=== PATIENT | female | born 1985 | race Caucasian/White ===

== ENCOUNTER 2017-06-06 09:27 | Emergency (ER) | payer OTHER ==
[2017-06-06 10:05] VITALS: BP 103/71
--- NOTE | 2017-06-06 10:15 | UC ---
Ear Complaint HPI - HPI Summary HPI Summary: bilateral ear pain x 2 days + nasal congestion, no cough no fever - History of Current Complaint Chief Complaint: UCEar Stated Complaint: EARS COMPLAINT Time Seen by Provider: 06/06/17 09:47 Hx Obtained From: Patient Hx Last Menstrual Period: 06/02/17 ?: No Onset/Duration: Gradual Onset, Lasting Days - 2, Still Present Severity Initially: Moderate Severity Currently: Moderate Aggravating Factors: Cold Alleviating Factors: Nothing Associated Signs/Symptoms: Positive: Hearing Loss, URI Symptoms. Negative: Discharge, Foreign Body Sensation, Trauma to Ear, Swelling @ - Allergies/Home Medications Allergies/Adverse Reactions: Allergies Allergy/AdvReac Type Severity Reaction Status Date / Time Tramadol Allergy Intermediate NAUSEA, Verified 06/06/17 09:57 HIVES, [address] Sulfa Drugs Allergy Unknown POSSIBLE Verified 06/06/17 09:57 RASH Hydrocodone Allergy Hives Verified 06/06/17 09:57 [From Hydrocodone W/Acetaminophen] PMH/Surg Hx/FS Hx/Imm Hx Respiratory History: Asthma - Surgical History Surgical History: Yes Surgery Procedure, Year, and Place: Left Carpal Tunnel, 2014, [facility] [place]; Right Carpal Tunnel, 2012, [place]: C-Sections, 2004 2006 2008, [place] - Family History Known Family History: Positive: Unknown Negative: Diabetes - Social History Alcohol Use: None Substance Use Type: None Smoking Status (MU): Light Every Day Tobacco Smoker Type: Cigarettes Amount Used/How Often: 5 CIGS/DAY Length of Time of Smoking/Using Tobacco: 16 Years Have You Smoked in the Last Year: Yes Household Exposure Type: Cigarettes - Immunization History Most Recent Influenza Vaccination: no Review of Systems Constitutional: Negative Skin: Negative Eyes: Negative ENT: Ear Ache, Nasal Discharge Respiratory: Negative Cardiovascular: Negative Gastrointestinal: Negative Is Patient Immunocompromised?: No All Other Systems Reviewed And Are Negative: Yes Physical Exam Triage Information Reviewed: Yes Appearance: Well-Appearing, No Pain Distress, Well-Nourished Vital Signs: Initial Vital Signs Temp 97.5 F 06/06/17 09:57 Pulse 72 06/06/17 09:57 Resp 16 06/06/17 09:57 BP 103/71 06/06/17 09:57 Pulse Ox 100 06/06/17 09:57 Vital Signs Reviewed: Yes Eyes: Positive: Conjunctiva Clear ENT: Positive: Normal ENT inspection, Hearing grossly normal, Pharynx normal, Nasal drainage, TM bulging - bilateral, TM dull - bilateral ears, TM red - bilateral ears. Negative: TMs normal Neck exam: Normal Neck: Positive: Supple, Nontender, No Lymphadenopathy Respiratory: Positive: Chest non-tender, Lungs clear, Normal breath sounds Cardiovascular: Positive: RRR, No Murmur, Pulses Normal Skin Exam: Normal Ear Complaint Course/Dx - Differential Dx/Diagnosis Provider Diagnoses: otitis media bilateral Discharge - Discharge Plan Condition: Stable Disposition: HOME Prescriptions: Amoxicillin PO (*) [Amoxicillin 875 MG (*)] 875 mg PO BID #20 tab Patient Education Materials: Otitis Media (ED) Referrals: Louisa Levin MD [Primary Care Provider] - 5 Days
== END 2017-06-06 10:25 | disposition home or self-care (01) ==
LOC: UCCORT 09:27
DX: H66.93 Otitis media, unspecified, bilateral (principal); F17.210 Nicotine dependence, cigarettes, uncomplicated
CPT/HCPCS: 99212; G0463

== ENCOUNTER 2018-01-12 11:31 | Emergency (ER) | payer OTHER ==
[2018-01-12 11:48] VITALS: BP 106/63
[2018-01-12] MEDS ORDERED: methylPREDNISolone 125 MG* 2 ML VIAL IM ONE (12:15)
--- NOTE | 2018-01-12 12:27 | ED ---
Skin Complaint - HPI Summary HPI Summary: 32-year-old female presents to the area for the past 3 days. She has a history of this. She has not had an issue in a year. She states that he cannot figure out why she gets the urticaria. She states that she was on about 8 antihistamines and that seemed to control her symptoms she took herself off as she had not had a rash while. She denies any new triggers. No new foods soaps or products. States the rash is itchy. She states that the rash has been spreading. She is taking Benadryl with minimal relief. States steroids normally help with the rash. She's last time she was on prednisone for a year as it was the only thing that could control the symptoms. She denies any chest or shortness breath. No sore throat. No abdominal pain. No nausea no vomiting. She denies any tongue swelling. - History of Current Complaint Chief Complaint: UCSkin Time Seen by Provider: 01/12/18 12:07 Stated Complaint: EAR COMPLAINT Hx Last Menstrual Period: December 18, 2017 Pain Intensity: 5 - Allergy/Home Medications Allergies/Adverse Reactions: Allergies Allergy/AdvReac Type Severity Reaction Status Date / Time hydrocodone Allergy Hives Verified 01/12/18 11:41 Sulfa (Sulfonamide Allergy Rash Verified 01/12/18 11:41 Antibiotics) tramadol Allergy Airway Verified 01/12/18 11:41 Obstruction Home Medications: Home Medications diphenhydrAMINE HCl [Benadryl Allergy] 25 mg PO Q6HR 01/12/18 [History Confirmed 01/12/18] PMH/Surg Hx/FS Hx/Imm Hx Endocrine/Hematology History: Denies: Hx Diabetes, Hx Thyroid Disease Cardiovascular History: Denies: Hx Hypertension Respiratory History: Reports: Hx Asthma - EXERCISE INDUCED- ALSO IS A SMOKER Denies: Hx Chronic Obstructive Pulmonary Disease (COPD) GI History: Denies: Hx Ulcer Sensory History: Reports: Hx Contacts or Glasses - READING GLASSES Denies: Hx Hearing Aid Opthamlomology History: Reports: Hx Contacts or Glasses - READING GLASSES Neurological History: Reports: Hx Migraine - HX OF - NONE RECENTLY Psychiatric History: Reports: Hx Anxiety - HX OF - NO MEDICATION FOR- STATES UNDER CONTROL, Hx Depression - HX OF- NO MEDICATION FOR- STATES UNDER CONTROL - Surgical History Surgery Procedure, Year, and Place: Left Carpal Tunnel, 2015, [facility] [place]; Right Carpal Tunnel, 2013, [place]: C-Sections, 2004 2006 2009, [place] Hx Anesthesia Reactions: No Infectious Disease History: No Infectious Disease History: Denies: Hx Clostridium Difficile, Hx Hepatitis, Hx Human Immunodeficiency Virus (HIV), Hx of Known/Suspected MRSA, Hx Shingles, Hx Tuberculosis, Hx Known/ Suspected VRE, Hx Known/Suspected VRSA, History Other Infectious Disease, Traveled Outside the [place] in Last 30 Days - Family History Known Family History: Positive: Unknown Negative: Diabetes - Social History Alcohol Use: None Substance Use Type: Reports: None Smoking Status (MU): Light Every Day Tobacco Smoker Type: Cigarettes Amount Used/How Often: 1/3 PPD Length of Time of Smoking/Using Tobacco: 16 Years Have You Smoked in the Last Year: Yes Review of Systems Negative: Chest Pain Negative: Shortness Of Breath Positive: Rash All Other Systems Reviewed And Are Negative: Yes Physical Exam Triage Information Reviewed: Yes Vital Signs On Initial Exam: Initial Vitals Temp Pulse Resp BP Pulse Ox 98.5 F 98 18 106/63 100 01/12/18 11:39 01/12/18 11:39 01/12/18 11:39 01/12/18 11:39 01/12/18 11:39 Vital Signs Reviewed: Yes Appearance: Positive: Well-Appearing Skin: Positive: Warm, Dry, Other - urticaria on left side of face near left ear Head/Face: Positive: Normal Head/Face Inspection Eyes: Positive: Normal, EOMI, CHUCK, Conjunctiva Clear ENT: Positive: Normal ENT inspection, Pharynx normal, TMs normal Respiratory/Lung Sounds: Positive: Clear to Auscultation, Breath Sounds Present Cardiovascular: Positive: Normal, RRR Abdomen Description: Positive: Nontender, Soft Bowel Sounds: Positive: Present Musculoskeletal: Positive: Normal Neurological: Positive: Normal Psychiatric: Positive: Normal Diagnostics - Vital Signs Vital Signs Temp Pulse Resp BP Pulse Ox 01/12/18 11:39 98.5 F 98 18 106/63 100 - Laboratory Lab Statement: Any lab studies that have been ordered have been reviewed, and results considered in the medical decision making process. Course/Dx - Course Course Of Treatment: 32-year-old female presents to the area for the past 3 days. She has a history of this. She has not had an issue in a year. She states that he cannot figure out why she gets the urticaria. She states that she was on about 8 antihistamines and that seemed to control her symptoms she took herself off as she had not had a rash while. She denies any new triggers. No new foods soaps or products. States the rash is itchy. She states that the rash has been spreading. She is taking Benadryl with minimal relief. States steroids normally help with the rash. She's last time she was on prednisone for a year as it was the only thing that could control the symptoms. She denies any chest or shortness breath. No sore throat. No abdominal pain. No nausea no vomiting. She denies any tongue swelling. On examination area to left-sided face. Normal pharynx. Lungs clear to auscultation. gave dose of Solu-Medrol. Will have continue steroids for a longer taper. Told follow- up with primary for continued care. Warned to return to the ED for. Patient understands and agrees with plan. - Differential Diagnoses - Skin Complaint Differential Diagnoses: Allergic Reaction, Anaphylaxis, Urticaria - Diagnoses Provider Diagnoses: Urticaria Discharge - Sign-Out/Discharge Documenting (check all that apply): Patient Departure - Discharge Plan Condition: Good Disposition: HOME Prescriptions: Famotidine TAB* [Pepcid 20 MG TAB*] 20 mg PO BID #24 tab predniSONE TAB* [Deltasone 10 MG TAB*] 10 mg PO DAILY #45 tab Patient Education Materials: Urticaria (ED) Referrals: Louisa Levin MD [Primary Care Provider] - Additional Instructions: take prednisone 6 tablets for 3 days, 4 tablets for 3 days, 3 tablets for 3 more days, 2 tablets for 2 more days, 1 tablet for 2 more days take benadryl every 6 hours take zytrec daily take pepcid twice a day Follow up with primary within 5 days Return to ED if develop any shortness of breath or any new or worsening symptoms - Billing Disposition and Condition Condition: GOOD Disposition: Home
== END 2018-01-12 12:36 | disposition home or self-care (01) ==
LOC: UCEAST 11:31
DX: L50.9 Urticaria, unspecified (principal); F17.210 Nicotine dependence, cigarettes, uncomplicated; Z88.2 Allergy status to sulfonamides; Z88.5 Allergy status to narcotic agent
CPT/HCPCS: 96372; 99212; G0463; J2930

== ENCOUNTER 2018-03-15 09:19 | Emergency (ER) | payer OTHER ==
[2018-03-15 09:57] VITALS: BP 121/90
--- NOTE | 2018-03-15 10:15 | UC ---
Throat Pain/Nasal Julian HPI - HPI Summary HPI Summary: 33-year-old woman coming in with a complaint of runny nose sore throat cough and chest congestion. Started 3 days ago. No fevers. Rhinorrhea sputum is green. Patient has a smoker. - History of Current Complaint Chief Complaint: UCRespiratory Stated Complaint: SORE THROAT,RUNNY NOSE Time Seen by Provider: 03/15/18 09:58 Hx Last Menstrual Period: 03/12 Pain Intensity: 1 - Allergies/Home Medications Allergies/Adverse Reactions: Allergies Allergy/AdvReac Type Severity Reaction Status Date / Time hydrocodone Allergy Hives Verified 01/12/18 11:41 Sulfa (Sulfonamide Allergy Rash Verified 01/12/18 11:41 Antibiotics) tramadol Allergy Airway Verified 01/12/18 11:41 Obstruction PMH/Surg Hx/FS Hx/Imm Hx Previously Healthy: Yes - Surgical History Surgical History: Yes Surgery Procedure, Year, and Place: Left Carpal Tunnel, 2014, [facility] [place]; Right Carpal Tunnel, 2012, [place]: C-Sections, 2004 2005 2008, [place] - Family History Known Family History: Positive: Unknown, Hypertension, Diabetes - Social History Alcohol Use: None Substance Use Type: None Smoking Status (MU): Light Every Day Tobacco Smoker Type: Cigarettes Amount Used/How Often: 1/3 PPD Length of Time of Smoking/Using Tobacco: 16 Years Have You Smoked in the Last Year: Yes Household Exposure Type: Cigarettes - Immunization History Most Recent Influenza Vaccination: "Can't even remember. pretty sure I did get one" Review of Systems Constitutional: Chills Skin: Negative Eyes: Negative ENT: Sore Throat, Nasal Discharge, Sinus Congestion Respiratory: Cough Cardiovascular: Negative Gastrointestinal: Negative Motor: Negative Neurovascular: Negative Musculoskeletal: Negative Neurological: Negative, Headache Is Patient Immunocompromised?: No All Other Systems Reviewed And Are Negative: Yes Physical Exam Triage Information Reviewed: Yes Appearance: No Pain Distress, Well-Nourished, Ill-Appearing - MILD Vital Signs: Initial Vital Signs Temp 97.6 F 03/15/18 09:53 Pulse 93 03/15/18 09:53 Resp 20 03/15/18 09:53 BP 121/90 03/15/18 09:53 Pulse Ox 100 03/15/18 09:53 Vital Signs Reviewed: Yes Eye Exam: Normal Eyes: Positive: Conjunctiva Clear ENT: Positive: Pharyngeal erythema, Nasal congestion, Nasal drainage, TMs normal Neck exam: Normal Neck: Positive: Supple, Nontender, Enlarged Nodes @ - ANTERIOR Respiratory Exam: Normal Respiratory: Positive: Lungs clear, Normal breath sounds, No respiratory distress Cardiovascular: Positive: RRR Musculoskeletal Exam: Normal Musculoskeletal: Positive: Strength Intact, ROM Intact, No Edema Neurological Exam: Normal Neurological: Positive: Alert Psychological Exam: Normal Psychological: Positive: Age Appropriate Behavior Skin Exam: Normal Throat Pain/Nasal Course/Dx - Course Course Of Treatment: DISCUSSED VIRAL VERSES BACTERIAL INFECTION AND THE ROLE OF ANTIBIOTICS. THE PATIENT WISHES TO BE ON ANTIBIOTICS AT THIS TIME. - Differential Dx/Diagnosis Provider Diagnoses: BRONCHITIS Discharge - Sign-Out/Discharge Documenting (check all that apply): Patient Departure All imaging exams completed and their final reports reviewed: No Studies - Discharge Plan Condition: Stable Disposition: HOME Prescriptions: Azithromyxin TRINIDAD (NF) [Z-[place]in[place] (Zithromax) 250 mg tabs #6] 2 tab PO .TODAY, THEN 1 DAILY #6 tab Patient Education Materials: Acute Bronchitis (ED) Referrals: Louisa Levin MD [Primary Care Provider] - Additional Instructions: FOLLOW UP WITH YOUR DOCTOR. GET RECHECKED FOR ANY WORSENING OF YOUR CONDITION OR QUESTIONS OR CONCERNS. - Billing Disposition and Condition Condition: STABLE Disposition: Home
== END 2018-03-15 10:21 | disposition home or self-care (01) ==
LOC: UCCORT 09:19
DX: J40 Bronchitis, not specified as acute or chronic (principal); F17.210 Nicotine dependence, cigarettes, uncomplicated; Z88.1 Allergy status to other antibiotic agents; Z88.5 Allergy status to narcotic agent
CPT/HCPCS: 99212; G0463

== ENCOUNTER 2018-07-17 15:46 | Emergency (ER) | payer SELFPAY ==
[2018-07-17 15:59] VITALS: BP 120/77
--- NOTE | 2018-07-17 16:14 | UC ---
Lower Extremity/Ankle HPI - HPI Summary HPI Summary: 33-year-old woman comes in with a chief complaint of left ankle pain. Pain is at the Achilles tendon. His pain on and off for quite some time. 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 Pain intensified greatly 3 days ago. Pain is worse with any attempted plantar flexion and dorsiflexion are any palpation of the Achilles tendon. Denies any acute trauma. Has not been on any medications recently. Patient is able plantarflex and dorsiflex both great pain. - History of Current Complaint Chief Complaint: UCLowerExtremity Stated Complaint: LEFT FOOT CONCERN Time Seen by Provider: 07/17/18 15:55 Hx Last Menstrual Period: 07/02/18 Pain Intensity: 8 - Allergies/Home Medications Allergies/Adverse Reactions: Allergies Allergy/AdvReac Type Severity Reaction Status Date / Time hydrocodone Allergy Hives Verified 07/17/18 15:54 Sulfa (Sulfonamide Allergy Rash Verified 07/17/18 15:54 Antibiotics) tramadol Allergy Airway Verified 07/17/18 15:54 Obstruction Home Medications: Home Medications NK [No Home Medications Reported] 07/17/18 [History Confirmed 07/17/18] PMH/Surg Hx/FS Hx/Imm Hx Previously Healthy: Yes - Surgical History Surgical History: Yes Surgery Procedure, Year, and Place: Left Carpal Tunnel, 2014, [facility] [place]; Right Carpal Tunnel, 2012, [place]: C-Sections, 2004 2006 2008, [place] - Family History Known Family History: Positive: Unknown, Hypertension, Diabetes - Social History Alcohol Use: None Substance Use Type: None Smoking Status (MU): Light Every Day Tobacco Smoker Type: Cigarettes Amount Used/How Often: 1/3 PPD Length of Time of Smoking/Using Tobacco: 16 Years Have You Smoked in the Last Year: Yes Household Exposure Type: Cigarettes - Immunization History Most Recent Influenza Vaccination: "Can't even remember. pretty sure I did get one" Review of Systems All Other Systems Reviewed And Are Negative: Yes Constitutional: Positive: Negative Skin: Positive: Negative Eyes: Positive: Negative ENT: Positive: Negative Respiratory: Positive: Negative Cardiovascular: Positive: Negative Gastrointestinal: Positive: Negative Motor: Positive: Negative Neurovascular: Positive: Negative Musculoskeletal: Positive: Other: - SEE HPI Neurological: Positive: Negative Psychological: Positive: Negative Is Patient Immunocompromised?: No Physical Exam Triage Information Reviewed: Yes Appearance: Well-Appearing, Well-Nourished, Pain Distress - MILD WITH LEFT ANKLE ROM/PALPATION Vital Signs: Initial Vital Signs Temp 97.9 F 07/17/18 15:55 Pulse 91 07/17/18 15:55 Resp 16 07/17/18 15:55 BP 120/77 07/17/18 15:55 Pulse Ox 100 07/17/18 15:55 Vital Signs Reviewed: Yes Eye Exam: Normal Eyes: Positive: Conjunctiva Clear Neck exam: Normal Neck: Positive: Supple Respiratory: Positive: No respiratory distress Musculoskeletal: Positive: Other: - Left ankle is tender to palpation at the Achilles tendon. The rest of the foot is nontender to palpation there is no swelling. Plantar fascia is nontender to palpation. Normal pulses and capillary refill of the foot. When I compress the calf muscles decreases the pain in the Achilles tendon. Patient is able to plantarflex and dorsiflex but with pain. No rash. Neurological Exam: Normal Neurological: Positive: Alert, Muscle Tone Normal Psychological Exam: Normal Psychological: Positive: Age Appropriate Behavior Skin Exam: Normal Lower Extremity Course/Dx - Course Course Of Treatment: Order Information: ANKLE LEFT 3+VWS. Accession Number: [id number]. CPT: 04365. HISTORY: ACHILLES TENDON PAIN. COMPARISONS: None. VIEWS: 3 , Frontal, lateral, and oblique views of the left ankle. FINDINGS: BONE DENSITY: Normal. BONES: There is no displaced fracture. JOINTS: There is no arthropathy. ALIGNMENT: There is no dislocation. SOFT TISSUES: Unremarkable. OTHER FINDINGS: None. IMPRESSION: NO ACUTE OSSEOUS INJURY. IF SYMPTOMS PERSIST, RECOMMEND REPEAT IMAGING. . <Electronically signed by Eduardo Milligan MD in [place]> 07/17/18 1700. I discussed the x-ray with the patient. Patient is Achilles tendinitis. - Differential Dx/Diagnosis Provider Diagnosis: Left Achilles tendinitis Discharge - Sign-Out/Discharge Documenting (check all that apply): Patient Departure All imaging exams completed and their final reports reviewed: Yes - Discharge Plan Condition: Stable Disposition: HOME Patient Education Materials: Achilles Tendinitis (ED) Forms: *Work Release Referrals: Louisa Levin MD [Primary Care Provider] - Seng Ramirez MD [Medical Doctor] - Additional Instructions: FOLLOW UP WITH ORTHOPEDICS. GET RECHECKED SOONER WITH ANY WORSENING OF YOUR CONDITION OR QUESTIONS OR CONCERNS. - Billing Disposition and Condition Condition: STABLE Disposition: Home
== END 2018-07-17 17:28 | disposition home or self-care (01) ==
LOC: UCCORT 15:46
DX: M76.62 Achilles tendinitis, left leg (principal); F17.210 Nicotine dependence, cigarettes, uncomplicated; Z88.5 Allergy status to narcotic agent; Z88.2 Allergy status to sulfonamides
CPT/HCPCS: 99213; G0463

== ENCOUNTER 2018-12-22 07:45 | Emergency (ER) | payer OTHER ==
[2018-12-22 08:07] VITALS: BP 114/88
[2018-12-22] MEDS ORDERED: Ibuprofen TAB* 600 MG PO ONE (08:17)
--- NOTE | 2018-12-22 08:22 | UC ---
Hand/Wrist HPI - HPI Summary HPI Summary: 33-year-old woman comes in with a chief complaint of left hand injury. Yesterday she was pulling on an object when it suddenly gave way and her hand spring back and struck a metal pole. The point of impact was the left proximal index finger on the dorsum. She did have partial thickness skin tear. Pain was immediate. She has been able to move the finger. Normal sensation. Patient this morning comes in because the pain is worse. Now with any attempts at movement of the finger the pain is severe. Pain shoots to the tip of the finger and also proximally into the wrist. Denies any injury to the wrist. - History Of Current Complaint Chief Complaint: UCUpperExtremity Stated Complaint: LEFT INDEX FINGER CONCERN Time Seen by Provider: 12/22/18 08:04 Hx Last Menstrual Period: 12/19/18 Pain Intensity: 7 - Allergies/Home Medications Allergies/Adverse Reactions: Allergies Allergy/AdvReac Type Severity Reaction Status Date / Time hydrocodone Allergy Hives Verified 12/22/18 08:01 Sulfa (Sulfonamide Allergy Rash Verified 12/22/18 08:01 Antibiotics) tramadol Allergy Airway Verified 12/22/18 08:01 Obstruction Home Medications: Home Medications diPHENhydraMINE PO* [Benadryl PO 25 MG TAB*] 50 mg PO Q6HR PRN 12/22/18 [ History Confirmed 12/22/18] PMH/Surg Hx/FS Hx/Imm Hx Previously Healthy: Yes - Surgical History Surgical History: Yes Surgery Procedure, Year, and Place: Left Carpal Tunnel, 2014, [facility] [place]; Right Carpal Tunnel, 2012, [place]: C-Sections, 2004 2006 2008, [place] - Family History Known Family History: Positive: Unknown, Hypertension, Diabetes - Social History Alcohol Use: Rare Substance Use Type: None Smoking Status (MU): Light Every Day Tobacco Smoker Type: Cigarettes Amount Used/How Often: 1/3 PPD Length of Time of Smoking/Using Tobacco: 16 Years Have You Smoked in the Last Year: Yes Household Exposure Type: Cigarettes - Immunization History Most Recent Influenza Vaccination: "Can't even remember. pretty sure I did get one" Review of Systems All Other Systems Reviewed And Are Negative: Yes Constitutional: Positive: Negative Skin: Positive: Other - see hpi Eyes: Positive: Negative ENT: Positive: Negative Respiratory: Positive: Negative Cardiovascular: Positive: Negative Gastrointestinal: Positive: Negative Motor: Positive: Other - see hpi Neurovascular: Positive: Negative Musculoskeletal: Positive: Other: - see hpi Neurological: Positive: Negative Psychological: Positive: Negative Is Patient Immunocompromised?: No Physical Exam Triage Information Reviewed: Yes Appearance: Well-Appearing, Well-Nourished, Pain Distress - mild with left index finger rom Vital Signs: Initial Vital Signs Temp 97.4 F 12/22/18 08:02 Pulse 82 12/22/18 08:02 Resp 16 12/22/18 08:02 BP 114/88 12/22/18 08:02 Pulse Ox 100 12/22/18 08:02 Vital Signs Reviewed: Yes Eye Exam: Normal Eyes: Positive: Conjunctiva Clear Neck: Positive: Supple Respiratory: Positive: No respiratory distress Musculoskeletal: Positive: Other: - Patient's left hand proximal index finger is tender to palpation on the dorsum. Patient declines attempted range of motion secondary to pain. Normal sensation distally normal capillary refill. Wrist is nontender to palpation. There is swelling in the proximal left index finger. Neurological: Positive: Alert Psychological: Positive: Age Appropriate Behavior Skin: Positive: Other - 1cm linear abrasion dorsum of proximal left index finger Hand/Wrist Course/Dx - Course Course Of Treatment: Patient Name: AYE BRAND Medical Record#: [id number] Ordering Physician: Varun Patiño MD Acct.#: [id number] : 1985 Age: 33 Sex: F Location: [facility] Exam Date: 12/22/18811 ADM Status: [facility] Order Information: HAND - LEFT MINIMUM 3 VIEWS Accession Number: [id number] CPT: 31082 Indication: Left hand injury. 4 views of left hand demonstrates no fracture. No other bone or joint abnormality is identified. IMPRESSION: No fracture of the left hand is present. <Electronically signed by Shy Roblero MD in [place]> 12/22/18826 I discussed the x-ray results with the patient. No fracture is seen. A splint was placed by nursing and clinic and the patient's neurovascular intact after placement of splint. Overall plan is immobilization as needed eyes anti- inflammatories and then follow up with the orthopedic hand specialist if not completely improved. By history the tendon is intact as the patient was able to move the finger yesterday. Today she's not moving the finger due to pain. I let her know if her hand did not improve she needed to follow-up with the orthopedic hand specialist. - Differential Dx/Diagnosis Provider Diagnosis: Abrasion of left index finger, Contusion of left index finger Discharge - Sign-Out/Discharge Documenting (check all that apply): Patient Departure All imaging exams completed and their final reports reviewed: Yes - Discharge Plan Condition: Stable Disposition: HOME Patient Education Materials: Finger Sprain (ED), Tendinitis (ED) Referrals: Kayla Shelton MD [Medical Doctor] - Additional Instructions: FOLLOW UP WITH THE ORTHOPEDIC HAND SPECIALIST IF NOT COMPLETELY IMPROVED. GET REEVALUATED SOONER IF WORSE OR ANY QUESTIONS OR CONCERNS. - Billing Disposition and Condition Condition: STABLE Disposition: Home
== END 2018-12-22 09:07 | disposition home or self-care (01) ==
LOC: UCCORT 07:45
DX: S60.411A Abrasion of left index finger, initial encounter (principal); W22.09XA Striking against other stationary object, initial encounter; Y93.89 Activity, other specified; Y92.9 Unspecified place or not applicable; Z88.2 Allergy status to sulfonamides; F17.210 Nicotine dependence, cigarettes, uncomplicated
CPT/HCPCS: 99212; A9270-GY; G0463

== ENCOUNTER 2019-01-11 09:00 | Emergency (ER) | payer OTHER ==
[2019-01-11 09:16] VITALS: BP 126/102
--- NOTE | 2019-01-11 09:38 | UC ---
Back Pain HPI - HPI Summary HPI Summary: 33 year old female with back concern. Intermittently for about a year now pt has been experiencing back pain. Pt has had a "pinched nerve" feeling in the middle of her lower back and a "throbbing feeling" diffusely across her flank areas bilaterally for 3 days, this pain has been constant. Pt has hx of UTI, but hasn't been having any urgency or frequency, no burning on urination, but has been experiencing lower abodminal pain intermittently the last 2-3 weeks, more so the last 3 days. [ End ] - History of Current Complaint Chief Complaint: UCGeneralIllness Stated Complaint: LOW BACK PAIN Time Seen by Provider: 01/11/19 09:18 Hx Obtained From: Patient Hx Last Menstrual Period: 01/08/19 Onset/Duration: Gradual Onset Severity Initially: Moderate Severity Currently: Moderate Pain Intensity: 6 Aggravating Factor(s): Movement Alleviating Factor(s): Rest Related History: Similar Episode Dx As - Risk Factors Cauda Equina Risk Factors: Negative - Allergies/Home Medications Allergies/Adverse Reactions: Allergies Allergy/AdvReac Type Severity Reaction Status Date / Time hydrocodone Allergy Hives Verified 01/11/19 09:16 Sulfa (Sulfonamide Allergy Rash Verified 01/11/19 09:16 Antibiotics) tramadol Allergy Airway Verified 01/11/19 09:16 Obstruction Home Medications: Home Medications Ibuprofen 400 mg PO ONCE 01/11/19 [History Confirmed 01/11/19] PMH/Surg Hx/FS Hx/Imm Hx Previously Healthy: Yes - Surgical History Surgical History: Yes Surgery Procedure, Year, and Place: Left Carpal Tunnel, 2014, [facility]. Right Carpal Tunnel, 2012,. [place]: C-Sections, 2003 2006 2009 - Family History Known Family History: Positive: Unknown, Hypertension, Diabetes - Social History Occupation: Employed Full-time Lives: With Family Alcohol Use: Rare Substance Use Type: None Smoking Status (MU): Former Smoker Type: Cigarettes Amount Used/How Often: 1/3 PPD Length of Time of Smoking/Using Tobacco: 16 Years Have You Smoked in the Last Year: Yes When Did the Patient Quit Smoking/Using Tobacco: 01/08/19 Household Exposure Type: Cigarettes - Immunization History Most Recent Influenza Vaccination: "Can't even remember. pretty sure I did get one" Review of Systems All Other Systems Reviewed And Are Negative: Yes Motor: Positive: Decreased ROM Neurovascular: Negative: Decreased Sensation Musculoskeletal: Positive: Arthralgia, Decreased ROM Is Patient Immunocompromised?: No Physical Exam Triage Information Reviewed: Yes Appearance: Well-Appearing, No Pain Distress, Well-Nourished Vital Signs: Initial Vital Signs Temp 97.5 F 01/11/19 09:09 Pulse 80 01/11/19 09:09 Resp 15 01/11/19 09:09 BP 126/102 01/11/19 09:09 Pulse Ox 100 01/11/19 09:09 Vital Signs Reviewed: Yes Respiratory Exam: Normal Cardiovascular Exam: Normal Abdominal Exam: Normal Bowel Sounds: Positive: Present Musculoskeletal: Positive: Strength Intact, ROM Intact, No Edema Neurological Exam: Normal Neurological: Positive: Alert Psychological Exam: Normal Skin Exam: Normal Images Front/Back of Body, Lg ([place]): 1 - diffuse tenderness paraspinals lumbar spine L2-4. no sp tenderness. no step offs. neg SLR. can walk on heels. strength 5/5 sensation intact mild antalgic gait Back Pain Course/Dx - Course Course Of Treatment: Likelt MSK related. No cauda equina. No neuro deficits. No red flags. Advise rest, PT, meds and f/u with Ortho. If Sx worsen go to ED . Pt aware and agree to plan - Differential Dx/Diagnosis Differential Diagnosis/HQI/PQRI: Arthritis, Compressive Cord Syndrome, Herniated Disc, Strain, Sprain Provider Diagnosis: Lumbar spine strain, Sciatica Discharge - Sign-Out/Discharge Documenting (check all that apply): Patient Departure All imaging exams completed and their final reports reviewed: No Studies - Discharge Plan Condition: Good Disposition: HOME Prescriptions: Cyclobenzaprine (NF) [Cyclobenzaprine 5 MG (NF)] 5 mg PO TID PRN #10 tab PRN Reason: muscle spasm methylPREDNISolone [Medrol Dosepak 4 MG*] 0 mg PO .SEE [place] INSTRUCTION #1 tab Patient Education Materials: Low Back Strain (ED), Lower Back Exercises (ED) Forms: *Work Release Referrals: No Primary Care Phys,NOPCP [Primary Care Provider] - 4 Days Seng Ramirez MD [Medical Doctor] - If Needed (Ortho referral ) - Billing Disposition and Condition Condition: GOOD Disposition: Home
== END 2019-01-11 10:15 | disposition home or self-care (01) ==
LOC: UCCORT 09:00
DX: S39.012A Strain of muscle, fascia and tendon of lower back, initial encounter (principal); X58.XXXA Exposure to other specified factors, initial encounter; Y92.9 Unspecified place or not applicable; M54.40 Lumbago with sciatica, unspecified side; Z88.2 Allergy status to sulfonamides; Z87.891 Personal history of nicotine dependence
CPT/HCPCS: 81003; 84702; 99212; G0463

== ENCOUNTER 2019-01-14 12:43 | Emergency (ER) | payer OTHER ==
[2019-01-14 13:05] VITALS: BP 109/80
--- NOTE | 2019-01-14 13:18 | UC ---
Back Pain HPI - HPI Summary HPI Summary: Pt seen here on 01/11/2019 for exacerbation of chronic back pain. She states it has not improved and has worsened. 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 She states she has had back problems for 10 years since having a and was told it was due to nerve damage during the C- section. Her pain waxes and wanes. She has had numerous spinal taps and x-rays and the results have always been negative and she has twan told it is due to the . Today, she states she is having saddle anesthesia, numbness of both legs "like when they're falling asleep". She states difficulty with urinating and bowel movements. Denies fever, no recent surgery, no drug or alcohol use, no recent spinal taps or surgery. - History of Current Complaint Chief Complaint: UCBackPain Stated Complaint: RECHECK BACK PAIN Time Seen by Provider: 01/14/19 12:57 Hx Obtained From: Patient Hx Last Menstrual Period: 01/10/19 ?: No Onset/Duration: Gradual Onset, Other - Chronic back pain for 10 years Timing: Constant Severity Initially: Mild Severity Currently: Severe Pain Intensity: 10 Back Pain: Is Diffuse - Worse on palpation lower spine and right paraspinal muscles. Character: Sharp, Aching, Throbbing Aggravating Factor(s): Movement, Lifting, Bending, Walking Alleviating Factor(s): Nothing Associated Signs And Symptoms: Positive: Numbness, Tingling, Abdominal Pain - pain radiates around right side to abdomen but denies abdominal pain., Pain with Weight Bearing. Negative: Flank Pain, Bladder Incontinence, Bowel Incontinence - Pt states difficulty with urinating and with Bowel movements. Related History: Similar Episode Dx As - Chronic back pain for 10 years since having a . - Allergies/Home Medications Allergies/Adverse Reactions: Allergies Allergy/AdvReac Type Severity Reaction Status Date / Time hydrocodone Allergy Hives Verified 01/11/19 09:16 Sulfa (Sulfonamide Allergy Rash Verified 01/11/19 09:16 Antibiotics) tramadol Allergy Airway Verified 01/11/19 09:16 Obstruction PMH/Surg Hx/FS Hx/Imm Hx Previously Healthy: Yes Respiratory History: Asthma Psychological History: Other - Panic attacks - Surgical History Surgical History: Yes Surgery Procedure, Year, and Place: Left Carpal Tunnel, 2015, [facility]. Right Carpal Tunnel, 2013,. [place]: C-Sections, 2004 2006 2009 - Family History Known Family History: Positive: Unknown, Hypertension, Diabetes - Social History Alcohol Use: Rare Substance Use Type: None Smoking Status (MU): Former Smoker Type: Cigarettes Amount Used/How Often: 1/3 PPD Length of Time of Smoking/Using Tobacco: 16 Years Have You Smoked in the Last Year: Yes When Did the Patient Quit Smoking/Using Tobacco: 01/08/19 Household Exposure Type: Cigarettes - Immunization History Most Recent Influenza Vaccination: "Can't even remember. pretty sure I did get one" Review of Systems All Other Systems Reviewed And Are Negative: Yes Constitutional: Positive: Negative Skin: Positive: Negative Respiratory: Positive: Negative Cardiovascular: Positive: Negative Gastrointestinal: Positive: Negative Genitourinary: Positive: Other - Pt states difficulty urinating since the back pain has worsened. Motor: Positive: Decreased ROM - Decreased ROM left leg due to pain but is able to move left leg Neurovascular: Positive: Decreased Sensation - Pt states legs feel numb and tingling "like they are falling asleep". Negative: Decreased Pulses Musculoskeletal: Positive: Other: - Pain lower back and right lower back. Pain shoots down left leg Neurological: Positive: Paresthesia, Numbness Psychological: Positive: Anxious Is Patient Immunocompromised?: No Physical Exam Triage Information Reviewed: Yes Appearance: Well-Appearing, Well-Nourished, Pain Distress Vital Signs: Initial Vital Signs Temp 98.2 F 01/14/19 12:59 Pulse 84 01/14/19 12:59 Resp 16 01/14/19 12:59 BP 109/80 01/14/19 12:59 Pulse Ox 100 01/14/19 12:59 Vital Signs Reviewed: Yes Respiratory: Positive: Lungs clear, Normal breath sounds, No respiratory distress, No accessory muscle use Cardiovascular: Positive: RRR, No Murmur, Pulses Normal, Brisk Capillary Refill Abdomen Description: Positive: Nontender, No Organomegaly, Soft, Bruit. Negative: CVA Tenderness (R), CVA Tenderness (L) Bowel Sounds: Positive: Present Musculoskeletal: Positive: Strength Intact, No Edema, Other: - I limited ROM exam due to patient's pain level but she did ambulate into the room and she is moving both legs but with pain especially in the left leg. Pain on palpation lower T-spine and the right paraspinal muscles. Good periph pulses, cap refill and neurosensation (even though she states legs are numb) Neurological: Positive: Alert, Muscle Tone Normal - Good feeling back of neck, able to adduct and abduct fingers against resistance, good dorsiflexion of foot and great toes bilaterally. Good arm and leg strength against resistance. Refused rectal exam. Unable to get onto exam table to check knee reflexes. Psychological Exam: Normal Skin Exam: Normal Back Pain Course/Dx - Course Course Of Treatment: We discussed referral via ambulance to [facility] for further specialized care. Pt refuses ambulance and states her boyfriend will drive her there. I discussed the importance of going directly to the ER preferably by ambulance. She continues to refuse ambulance transport. I advised she will need to sign out AMA and she is agreeable to signing out AMA but stated she will definitely got directly to the ER. She was discharged ambulatory. - Differential Dx/Diagnosis Provider Diagnosis: Back pain Discharge - Sign-Out/Discharge Documenting (check all that apply): Patient Departure All imaging exams completed and their final reports reviewed: No Studies - Discharge Plan Condition: Fair Disposition: AGAINST MEDICAL ADVICE Referrals: No Primary Care Phys,NOPCP [Primary Care Provider] - Additional Instructions: It is recommended that you go to the ER for further evaluation for your back pain and numbness in legs. You are signing out against medical advice because you are refusing the ambulance transfer. If at any point your symptoms worsen as you are being driven to the ER, you are to tie puller and call 911. - Billing Disposition and Condition Condition: FAIR Disposition: Against Medical Advice
== END 2019-01-14 13:46 | disposition left against medical advice (07) ==
LOC: UCCORT 12:43
DX: M54.9 Dorsalgia, unspecified (principal); Z87.891 Personal history of nicotine dependence
CPT/HCPCS: 99212; G0463

== ENCOUNTER 2019-01-14 14:36 | Emergency (ER) | payer OTHER ==
--- NOTE | 2019-01-14 15:08 | ED ---
Back Pain - HPI Summary HPI Summary: The pt is a 33 yr old female presenting to [facility] c/o back pain possibly secondary to sciatica beginning 2 weeks [employer]. She was experiencing abd and back pain a few days ago and decided to go to convenient care after her pain worsened while at work. Her current pain is midline at the tailbone, and she rates its severity a 9/10. She describes the pain as sharp and notes a burning feeling when turning too fast. The pain affects the left side of her back more but is occasionally present bilaterally. She also mentions that the pain shoots up her back and down her legs, and then she starts to feel a nerve flinching sensation in her head. She mentions that she has had back pain for 10 years. The pain is aggravated by movement. No new numbness, loss of bowel or bladder or urinary retention. She additionally reports chills secondary to anxiety. She has Hx of x3 and multiple spinal taps. - History of Current Complaint Chief Complaint: EDBackInjuryPain Stated Complaint: SEVERE BACK PAIN AND NUMBNESS IN LEGS PER PT Time Seen by Provider: 01/14/19 14:44 Hx Obtained From: Patient Hx Last Menstrual Period: 01/10/19 Onset/Duration: Lasting Weeks, Still Present Onset/Duration: Started Weeks Ago, Still Present, Worse Since - last few days Timing: Constant, Lasting Weeks Back Pain Location: Is Discrete @ - Low back., Radiates To - legs Severity Initially: Severe Severity Currently: Severe Pain Intensity: 9 Pain Scale Used: 0-10 Numeric Character: Sharp, Throbbing Aggravating Symptom(s): Movement Alleviating Symptom(s): Rest Associated Signs And Symptoms: Positive: Tingling - In feet., Other - positive - BLE pain radiating from back, CP secondary to anxiety, chills - Allergies/Home Medications Allergies/Adverse Reactions: Allergies Allergy/AdvReac Type Severity Reaction Status Date / Time hydrocodone Allergy Hives Verified 01/11/19 09:16 Sulfa (Sulfonamide Allergy Rash Verified 01/11/19 09:16 Antibiotics) tramadol Allergy Airway Verified 01/11/19 09:16 Obstruction PMH/Surg Hx/FS Hx/Imm Hx Endocrine/Hematology History: Denies: Hx Diabetes, Hx Thyroid Disease Cardiovascular History: Denies: Hx Hypertension Respiratory History: Reports: Hx Asthma - EXERCISE INDUCED Denies: Hx Chronic Obstructive Pulmonary Disease (COPD) GI History: Denies: Hx Ulcer Sensory History: Reports: Hx Contacts or Glasses - READING GLASSES Denies: Hx Hearing Aid Opthamlomology History: Reports: Hx Contacts or Glasses - READING GLASSES Neurological History: Reports: Hx Migraine - HX OF - NONE RECENTLY Psychiatric History: Reports: Hx Anxiety - HX OF - NO MEDICATION FOR- STATES UNDER CONTROL, Hx Depression - HX OF- NO MEDICATION FOR- STATES UNDER CONTROL - Surgical History Surgical History: Yes Surgery Procedure, Year, and Place: Left Carpal Tunnel, 2014, [facility]. Right Carpal Tunnel, 2013,. [place]: C-Sections, 2003 2006 2008 Hx Anesthesia Reactions: No Infectious Disease History: No Infectious Disease History: Denies: Hx Clostridium Difficile, Hx Hepatitis, Hx Human Immunodeficiency Virus (HIV), Hx of Known/Suspected MRSA, Hx Shingles, Hx Tuberculosis, Hx Known/ Suspected VRE, Hx Known/Suspected VRSA, History Other Infectious Disease, Traveled Outside the [place] in Last 30 Days - Family History Known Family History: Positive: Hypertension, Diabetes, Other - Brain tumors, lung CA - Social History Alcohol Use: Rare Hx Substance Use: No Substance Use Type: Reports: None Hx Tobacco Use: Yes Smoking Status (MU): Former Smoker Type: Cigarettes Amount Used/How Often: 1/3 PPD Length of Time of Smoking/Using Tobacco: 16 Years Have You Smoked in the Last Year: Yes Review of Systems Positive: Fever Positive: Other - Positive - Back pain radiating into BLE Neurological: Other - Positive - "tingling" in feet Positive: Numbness - "shooting" down legs Positive: Anxious All Other Systems Reviewed And Are Negative: Yes Physical Exam - Summary Physical Exam Summary: Constitutional: No acute distress Skin: Warm, Dry HENT: Normocephalic; Atraumatic Eyes: Conjunctiva normal Neck: Musculoskeletal ROM normal neck. (-) JVD, (-) Stridor, (-) Nuchal rigidity Cardio: Rhythm regular, rate normal, Heart sounds normal; Intact distal pulses; Radial pulses are 2+ and symmetric. (-) Murmur Pulmonary/Chest wall: Effort normal. (-) Respiratory distress, (-) Wheezes, (-) Rales Abd: Soft, (-) tenderness, (-) Distension, (-) Guarding, (-) Rebound Musculoskeletal: Tenderness in paraspinal lumbar region, positive bilateral straight leg raise, (-) Edema Lymph: (-) Cervical adenopathy Neuro: Alert, Oriented x3. Steady gait w ambulation. Strength 5/5 in bilateral lower extremities. Sensation intact to light touch Psych: Mood and affect Normal Triage Information Reviewed: Yes Vital Signs On Initial Exam: Initial Vitals Temp Pulse Resp BP Pulse Ox 98.1 F 77 20 137/88 99 01/14/19 14:39 01/14/19 14:39 01/14/19 14:39 01/14/19 14:39 01/14/19 14:39 Vital Signs Reviewed: Yes Diagnostics - Vital Signs Vital Signs Temp Pulse Resp BP Pulse Ox 01/14/19 14:39 98.1 F 77 20 137/88 99 - Laboratory Lab Statement: Any lab studies that have been ordered have been reviewed, and results considered in the medical decision making process. Re-Evaluation - Re-Evaluation First Eval Re-Evaluation Time: 16:40 Comment: Pt is sleeping. Second Eval Re-Evaluation Time: 17:00 Change: Improved Comment: Patient is awake. Her pain is better with morphine. Discussed a short dose of Percocet for acute pain however she is needs a chronic pain specialist or a orthopedic surgeon to manage her chronic pain. Patient and family with a steady gait. We discussed discharge home and will refill her prescription for Flexeril. Back Pain Course/Dx - Course Course Of Treatment: 33-year-old female with a history of chronic back pain and sciatica presents with worsening of her chronic pain. Back pain ddx. This patient does not have red flags for emergent cause of back pain. - Spinal metastasis - No constitutional symptoms, weight loss, or known primary cancer to suggest met to spine. - Epidural abscess/osteomyelitis/discitis - No fever/ IVDU/indwelling lines to suggest epidural abscess, osteomyelitis, or discitis. 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 - PNA/PTX/PE - No respiratory symptoms to suggest PNA, PTX or PE. - Pyelo/ renal stone - No fevers or urinary symptoms to suggest pyelo or renal stone. Recent neg UA. - Cauda equina - No bilateral LE weakness/loss of sensation, or loss of urine/bladder control. Intermittent paresthesias with pain that are chronic. Exam and history consistent with flareup of chronic sciatica. Patient states she is going to make an appointment w/ an orthopedic surgeon this week. Patient does help the pain down therefore we will try symptomatic control with Valium, Toradol, Tylenol and reassess. Will also try a lidocaine patch. Therefore imaging/further studies not obtained in emergency department, and likely can safely be deferred to outpatient setting - Diagnoses Provider Diagnoses: Back pain Discharge - Sign-Out/Discharge Documenting (check all that apply): Patient Departure - Discharge. Patient Received Moderate/Deep Sedation with Procedure: No - Discharge Plan Condition: Stable Disposition: HOME Prescriptions: Cyclobenzaprine TAB* [Flexeril 10 MG TAB*] 10 mg PO TID PRN 4 Days #12 tab PRN Reason: Pain Patient Education Materials: Back Pain (ED) Referrals: [facility] [Outside] - 3 Days Phong Cazares MD [Medical Doctor] - 3 Days Additional Instructions: You were seen in the emergency department for pain Your pain is likely due to chronic sciatica, please return to emergency department for worsening pain, new numbness or tingling in your extremities, bowel or bladder incontinence, or if you're concerned. If any studies were not completed at the time of discharge you will be called with the relevant results. Please follow up with your primary care doctor in next 2-3 days and return to emergency department for worsening or concerning symptoms. - Billing Disposition and Condition Condition: STABLE Disposition: Home - Attestation Statements Document Initiated by Severiano: Yes Documenting Scribe: Brent Powell Provider For Whom Severiano is Documenting (Include Credential): Dr. Africa Nguyễn Scribe Attestation: I, Brent Powell, scribed for Dr. Africa Nguyễn on 01/14/19 at [id number]. Scribe Documentation Reviewed: Yes Provider Attestation: The documentation as recorded by the Brent long accurately reflects the service I personally performed and the decisions made by me, Dr. Africa Nguyễn Status of Scribe Document: Viewed
[2019-01-14] MEDS ORDERED: Acetaminophen TAB* 325 MG PO ONE (15:15)
[2019-01-14] MEDS ORDERED: Ketorolac INJ* 30 MG/ML 1 ML VIAL IM ONE (15:16)
[2019-01-14] MEDS ORDERED: Diazepam TAB(*) 5 MG PO ONE (15:27)
[2019-01-14] MEDS ORDERED: Lidocaine PATCH 5%* 1 PATCH ONE (15:34)
[2019-01-14] MEDS ORDERED: Morphine 4 MG/ML VIAL (1 ml) 4 MG/ML VIAL IV ONE (16:48)
[2019-01-14 17:24] VITALS: BP 122/77
[2019-01-14] MEDS ORDERED: Lidocaine Patch REMOVE* 1 NOTE MISC SCH (21:00)
[2019-01-15] MEDS ORDERED: Lidocaine PATCH 5%* 1 PATCH TRANSDERM SCH (09:00)
== END 2019-01-14 17:23 | disposition home or self-care (01) ==
LOC: ED 14:36
DX: M54.9 Dorsalgia, unspecified (principal); Z88.5 Allergy status to narcotic agent; Z88.2 Allergy status to sulfonamides; Z87.891 Personal history of nicotine dependence
CPT/HCPCS: 96372; 96374; 99282; A9270-GY; J1885; J2270

== ENCOUNTER 2019-06-17 20:22 | Emergency (ER) | payer OTHER ==
[2019-06-17 20:37] VITALS: BP 108/70
--- NOTE | 2019-06-17 20:40 | UC ---
Hand/Wrist HPI - HPI Summary HPI Summary: Patient is a 34-year-old female presenting with significant other for right hand pain and pain of right hand fingers since last night after she got frustrated and repeatedly punched a wall. Patient notes pain in all 4 fingers and in dorsal aspect of the right hand. Notes pain slightly better than yesterday. Denies wrist pain. Notes decreased finger flexion and extension. Notes numbness and tingling of all fingers. Notes swelling and bruising of fingers. Denies thumb pain. Patient concerned for fractured fingers. - History Of Current Complaint Chief Complaint: UCUpperExtremity Stated Complaint: RIGHT HAND INJURY Hx Obtained From: Patient Hx Last Menstrual Period: 05/26/19 Onset/Duration: Sudden Onset Severity Currently: Moderate Pain Intensity: 4 Pain Scale Used: 0-10 Numeric - Allergies/Home Medications Allergies/Adverse Reactions: Allergies Allergy/AdvReac Type Severity Reaction Status Date / Time hydrocodone Allergy Hives Verified 06/17/19 20:37 Sulfa (Sulfonamide Allergy Rash Verified 06/17/19 20:37 Antibiotics) tramadol Allergy Airway Verified 06/17/19 20:37 Obstruction PMH/Surg Hx/FS Hx/Imm Hx - Surgical History Surgical History: Yes Surgery Procedure, Year, and Place: Left Carpal Tunnel, 2014, [facility]. Right Carpal Tunnel, 2012,. [place]: [facility], 2003 2005 2008 - Family History Known Family History: Positive: Unknown, Hypertension, Diabetes, Other - Brain tumors, lung CA - Social History Alcohol Use: Rare Substance Use Type: None Smoking Status (MU): Heavy Every Day Tobacco Smoker Type: Cigarettes Amount Used/How Often: 1/3 PPD Length of Time of Smoking/Using Tobacco: 16 Years Have You Smoked in the Last Year: Yes When Did the Patient Quit Smoking/Using Tobacco: 01/08/19 Household Exposure Type: Cigarettes - Immunization History Most Recent Influenza Vaccination: "Can't even remember. pretty sure I did get one" Review of Systems All Other Systems Reviewed And Are Negative: No Constitutional: Positive: Negative Skin: Positive: Bruising - R hand fingers Respiratory: Positive: Negative Cardiovascular: Positive: Negative Neurovascular: Positive: Negative Musculoskeletal: Positive: Arthralgia - R hand fingers 2-5 and dorsal aspect of R hand, Decreased ROM - R hand finger flexion and extension, Edema - R hand fingers 2-5 Neurological: Positive: Paresthesia - R fingers, Numbness - R fingers Physical Exam Triage Information Reviewed: Yes Appearance: Well-Appearing, No Pain Distress, Well-Nourished Vital Signs: Initial Vital Signs Temp 99.8 F 06/17/19 20:33 Pulse 84 06/17/19 20:33 Resp 16 06/17/19 20:33 BP 108/70 06/17/19 20:33 Pulse Ox 99 06/17/19 20:33 Vital Signs Reviewed: Yes Eyes: Positive: Conjunctiva Clear ENT: Positive: Hearing grossly normal Neck: Positive: Supple Respiratory: Positive: No respiratory distress Cardiovascular: Positive: Pulses Normal - strong radial pulses, Brisk Capillary Refill - <2sec Musculoskeletal: Positive: ROM Intact - R wrist flexion/extension, Strength Limited @ - 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 biomedical specialist d/t pain, ROM Limited @ - R fingers 2-5 flexion and extension d/t pain, Edema @ - R proximal phalanx of 2nd-5th fingers and MCP joints of 4th and 5th fingers, Other: - tenderness to palpation of proximal phalanges and 5th metacarpal of R hand Neurological Exam: Other - sensation grossly intact Neurological: Positive: Alert Psychological: Positive: Age Appropriate Behavior Skin: Positive: Other - ecchymosis noted over proximal phalanges and MCP joints of R hand Diagnostics - Radiology R hand Radiology Interpretation Completed By: ED Physician Summary of Radiographic Findings: possible fx of proximal phalanx of 5th finger Hand/Wrist Course/Dx - Course Course Of Treatment: Reviewed radiographs with Dr. Dao. Possible fx noted of proximal phalanx of R 5th finger. I placed patient in ulnar gutter splint and instructed to follow up with ortho as soon as possible for reevaluation. Instructed to keep splint on until follow-up. Instructed continue symptomatic treatment. Patient voiced understanding and agreed with the treatment plan. - Differential Dx/Diagnosis Differential Diagnosis/HQI/PQRI: Contusion, Fracture Provider Diagnosis: Pain in right finger(s), Pain in right hand Discharge ED - Sign-Out/Discharge Documenting (check all that apply): Patient Departure All imaging exams completed and their final reports reviewed: No - Discharge Plan Condition: Stable Disposition: HOME Patient Education Materials: Finger Fracture (ED) Referrals: Kayla Shelton MD [Medical Doctor] - As Soon As Possible Additional Instructions: As discussed, your radiograph was reviewed by the provider that treated you tonight. It will be read by a radiologist tomorrow morning. If there is a finding other than that discussed with you today, you will receive a call from a care provider. You received a splint tonight for possible fracture which you should leave on until you are able to follow up with orthopedics. Rest, ice, and elevate the hand to alleviate pain and swelling. You may take ibuprofen for pain relief. It is important that you follow up with the referral listed below as soon as possible. - Billing Disposition and Condition Condition: STABLE Disposition: Home - Attestation Statements Provider Attestation: I was available for consult. This patient was seen by the [facility]. The patient was presented to but not seen by or examined by me I reviewed xrays - ? non displaced fracture ( wet read) Agree with plan of care -Fnkina Dao MD
--- NOTE | 2019-06-18 10:54 | ED ---
Progress - Progress Note Progress Note: xray: possible fx 5th proximal phalynx. Patient already splinted and referred to Ortho hand per the medical record. Course/Dx - Diagnoses Provider Diagnoses: Pain in right finger(s), Pain in right hand Discharge ED - Sign-Out/Discharge Documenting (check all that apply): Patient Departure All imaging exams completed and their final reports reviewed: Yes - Discharge Plan Condition: Stable Disposition: HOME Patient Education Materials: Finger Fracture (ED) Referrals: Kayla Shelton MD [Medical Doctor] - As Soon As Possible Additional Instructions: As discussed, your radiograph was reviewed by the provider that treated you tonight. It will be read by a radiologist tomorrow morning. If there is a finding other than that discussed with you today, you will receive a call from a care provider. You received a splint tonight for possible fracture which you should leave on until you are able to follow up with orthopedics. Rest, ice, and elevate the hand to alleviate pain and swelling. You may take ibuprofen for pain relief. It is important that you follow up with the referral listed below as soon as possible. - Billing Disposition and Condition Condition: STABLE Disposition: Home
== END 2019-06-17 21:40 | disposition home or self-care (01) ==
LOC: UCCORT 20:22
DX: M79.644 Pain in right finger(s) (principal); M79.641 Pain in right hand; S62.646A Nondisplaced fracture of proximal phalanx of right little finger, initial encounter for closed fracture; W22.09XA Striking against other stationary object, initial encounter; Y92.9 Unspecified place or not applicable; Z88.5 Allergy status to narcotic agent; Z88.2 Allergy status to sulfonamides; F17.210 Nicotine dependence, cigarettes, uncomplicated
CPT/HCPCS: 26720; 26770; 99211; G0463

== ENCOUNTER 2019-07-03 16:45 | Observation (INO) | payer OTHER ==
--- NOTE | 2019-07-03 17:18 | ED ---
Neurological HPI - HPI Summary HPI Summary: This pt is a 34 Y/O F presenting to [facility] from [facility] as a transfer for neurologic problems. Per [place] the pt presented with tremors in her head/ neck without any injury or LOC. She was given Motrin and reglan for relief and then sent home where she began experiencing tremors at home again. She has a Hx of hereditary idiopathic angioedema but no neurologic problems. She had been in the [facility] ED 3 times this weekend for neck spasms. Her tremors have been causing her to have neck pain with a headache and N/V. She states that she also had L sided leg weakness that are described as fatigued (now resolved), followed by R sided weakness (also resolved). She had temporary relief with Reglan and ibuprofen. She has had no recent fevers or chills. Currently she states that her symptoms began on 06/29/2019 and worsened on 2019 with an increase in tremors, dizziness, and an occasional LOC. She states that she had an episode last night while getting ready to sleep when she started shaking and fell due to a LOC. She states that she has pain in her neck that is currently rated an 8/10 in severity. She states that her tremors begin with neck stiffness and pain. She currently denies any fevers, chills, abdominal pains, CP, and SOB. She states that she hasnt had any recent medical changes. She states that during the episode she has had blurred visions with shaking bilaterally in occasionally has tremors in her legs. She has a no known aggravating or alleviating factors. She states that she has a Hx of uticaria. She has a FHx of brain tumors and various cancers. - History of Current Complaint Chief Complaint: EDNeurologicalDeficit Stated Complaint: NECK PAIN/TREMORS PER EMS Time Seen by Provider: 07/03/19 16:59 Last Known Well Date: 06/28/2019 Hx Obtained From: Patient, [facility] Hx Last Menstrual Period: 05/26/19 Onset/Duration: Sudden Onset, Still Present, Worse Since - 06/29/2019 Timing: Constant Onset Severity: Mild Current Severity: Severe Headache Location: Diffuse (Right), Diffuse (Left) Pain Intensity: 8 Pain Scale Used: 0-10 Numeric Syncope Context: Witnessed - states multiple episodes while being transfered to [place] on 06/30/2019 and during the ED visit. Alleviating: Nothing Associated Signs and Symptoms: Positive: Negative - chills, CP, Visual Changes - blurry, Headache, Memory Loss, Loss of Consciousness, Nausea/Vomiting, Neck Pain/Stiffness, Nothing. Negative: Fever, Chest Pain, Shortness of Breath, Change in Medication - Allergy/Home Medications Allergies/Adverse Reactions: Allergies Allergy/AdvReac Type Severity Reaction Status Date / Time hydrocodone Allergy Hives Verified 06/17/19 20:37 Sulfa (Sulfonamide Allergy Rash Verified 06/17/19 20:37 Antibiotics) tramadol Allergy Airway Verified 06/17/19 20:37 Obstruction Home Medications: Home Medications Ibuprofen TAB* [Motrin TAB* 600 MG] 600 mg PO TID PRN 07/03/19 [History Confirmed 07/03/19] Metoclopramide TAB* [Reglan TAB*] 10 mg PO QID PRN 07/03/19 [History Confirmed 07/03/19] PMH/Surg Hx/FS Hx/Imm Hx Previously Healthy: Yes Endocrine/Hematology History: Denies: Hx Diabetes, Hx Thyroid Disease Cardiovascular History: Denies: Hx Hypertension Respiratory History: Reports: Hx Asthma - EXERCISE INDUCED Denies: Hx Chronic Obstructive Pulmonary Disease (COPD) GI History: Denies: Hx Ulcer Sensory History: Reports: Hx Contacts or Glasses - READING GLASSES Denies: Hx Hearing Aid Opthamlomology History: Reports: Hx Contacts or Glasses - READING GLASSES Neurological History: Reports: Hx Migraine - HX OF - NONE RECENTLY Psychiatric History: Reports: Hx Anxiety - HX OF - NO MEDICATION FOR- STATES UNDER CONTROL, Hx Depression - HX OF- NO MEDICATION FOR- STATES UNDER CONTROL - Cancer History Hx Chemotherapy: No Hx Radiation Therapy: No - Surgical History Surgical History: Yes Surgery Procedure, Year, and Place: Left Carpal Tunnel, 2014, [facility]. Right Carpal Tunnel, 2013,. [place]: C-Sections, 2004 2006 2009 Hx Anesthesia Reactions: No - Immunization History Immunizations Up to Date: Yes Infectious Disease History: No Infectious Disease History: Denies: Hx Clostridium Difficile, Hx Hepatitis, Hx Human Immunodeficiency Virus (HIV), Hx of Known/Suspected MRSA, Hx Shingles, Hx Tuberculosis, Hx Known/ Suspected VRE, Hx Known/Suspected VRSA, History Other Infectious Disease, Traveled Outside the [place] in Last 30 Days - Family History Known Family History: Positive: Unknown, Hypertension, Diabetes, Other - Brain tumors, lung CA - Social History Occupation: Employed Full-time Lives: With Family Alcohol Use: Rare Hx Substance Use: No Substance Use Type: Reports: None Hx Tobacco Use: Yes Smoking Status (MU): Light Every Day Tobacco Smoker Type: Cigarettes Amount Used/How Often: 1/3 PPD Length of Time of Smoking/Using Tobacco: 16 Years Have You Smoked in the Last Year: Yes Review of Systems Negative: Fever, Chills Positive: Blurred Vision ENT: Other - neck pain with stiffness Negative: Chest Pain Negative: Shortness Of Breath Positive: Vomiting, Nausea. Negative: Abdominal Pain Positive: Headache, Syncope All Other Systems Reviewed And Are Negative: Yes Physical Exam - Summary Physical Exam Summary: Constitutional: Alert. (-) Distressed Skin: Warm, Dry HENT: Normocephalic; Atraumatic, rhythmic movements of the head Eyes: Conjunctiva normal Neck: Musculoskeletal - tenderness of R sternocleidomastoid, (-) JVD, (-) Stridor, (-) Nuchal rigidity Cardio: Rhythm regular, rate normal, Heart sounds normal; Intact distal pulses; Radial pulses are 2+ and symmetric. (-) Murmur Pulmonary/Chest wall: Effort normal. (-) Respiratory distress, (-) Wheezes, (-) Rales Abd: Soft, (-) tenderness, (-) Distension, (-) Guarding, (-) Rebound Musculoskeletal: (-) Edema Lymph: (-) Cervical adenopathy Neuro: Alert, Oriented x3, CN 2-12 grossly intact, no dysmetria, no nystagmus. Strength 5 out of 5 bilateral upper extremities, bilateral lower extremities. SILT Psych: Mood and affect Normal Triage Information Reviewed: Yes Vital Signs On Initial Exam: Initial Vitals Temp Pulse Resp BP Pulse Ox 98.2 F 50 16 137/84 99 07/03/19 16:49 07/03/19 16:49 07/03/19 16:49 07/03/19 16:49 07/03/19 16:49 Vital Signs Reviewed: Yes Procedures - Sedation Patient Received Moderate/Deep Sedation with Procedure: No Diagnostics - Vital Signs Vital Signs Temp Pulse Resp BP Pulse Ox 07/03/19 16:49 98.2 F 50 16 137/84 99 - Laboratory Result Diagrams: 07/03/19 17:32 07/03/19 17:32 Lab Statement: Any lab studies that have been ordered have been reviewed, and results considered in the medical decision making process. - EKG 1716 Cardiac Rate: Tachycardia - 123 BPM EKG Rhythm: Sinus Tachycardia Summary of EKG Findings: An EKG at 1716 reveals normal sinus rhythm 123 BPM with ventricular bigeminy. No STEMI. No acute changes. Dr. Nguyễn has interpreted this report on 07/03/2019 1720. Re-Evaluation - Re-Evaluation First Eval Re-Evaluation Time: 18:34 Change: Unchanged Comment: Imaging results from [place] were obtained. They found: 07/01 CT no acute findings. 07/03 CXR no acute cardiopulmonary findings Second Eval Re-Evaluation Time: 21:15 Change: Worse Comment: Patient back from MRI, getting errythmatous itchy rash. Benedryl ordered. Course/Dx - Course Course Of Treatment: 34 y/o F with PMH uticaria p/w neck pain/spasms, headaches. -Physical exam with rhythmic movements of the head, tenderness and rigidity of the right external clindamycin. Minimal midline tenderness. No trauma. No infectious symptoms. - Previously obtained imaging shows a normal head CT, chest x-ray. No evidence of infection on prior labs. Urine drug screen positive benzodiazepines which were administered in the ED. - At this time, cause remains unclear, possible musculoskeletal cause causing tensing of the right sternocleidomastoid which could be leading to the spasms. Discuss with on-call neurology who recommends MRI brain and C-spine. - admit to [facility] - Diagnoses Provider Diagnoses: Neck pain, Headache, Occasional tremors - Physician Notifications Discussed Care Of Patient With: Duran Sharp Time Discussed With Above Provider: 18:50 Instructed by Provider To: Admit As Inpatient - Per Dr. Sharp and Dr. Sierra, the pt will be admitted for a brain MRI and neurology follow up in the morning. Admit/Transition Orders Completed By ED Provider: Yes Discharge ED - Sign-Out/Discharge Documenting (check all that apply): Patient Departure - admitted - Discharge Plan Condition: Stable Disposition: ADMITTED TO [facility] - Billing Disposition and Condition Condition: STABLE Disposition: Admitted to [facility] - Attestation Statements Document Initiated by Scribe: Yes Documenting Scribe: Beau Kirby Provider For Whom Scribe is Documenting (Include Credential): Africa Nguyễn MD Scribe Attestation: IBeau, scribed for Africa Nguyễn MD on 07/04/19 at 0707. Scribe Documentation Reviewed: Yes Provider Attestation: The documentation as recorded by the toniibeBeau accurately reflects the service I personally performed and the decisions made by me, Africa Nguyễn MD Status of Scribe Document: Viewed
[2019-07-03] MEDS ORDERED: NS 0.9% 1000 ML** 1,000 ML IV ONE (17:22)
[2019-07-03] MEDS ORDERED: Diazepam TAB(*) 5 MG PO ONE (17:35)
[2019-07-03 17:47] LABS: Hematocrit 43 % (35-47); Hemoglobin 14.4 g/dL (12.0-16.0); Mean Corpuscular HGB Conc 34 g/dL (31-36); Mean Corpuscular Hemoglobin 29 pg (27-31); Mean Corpuscular Volume 85 fL (80-97); Mean Platelet Volume 10.6 fL (7.4-10.4); Platelet Count 183 10^3/uL (150-450); Red Blood Count 4.99 10^6 /uL (3.70-4.87); Red Cell Distribution Width 14 % (10-15); White Blood Count 5.9 10^3/uL (3.5-10.8)
[2019-07-03 18:11] LABS: Albumin 4.4 g/dL (3.2-5.2); BUN/Creatinine Ratio 8.2 (8-20); Calcium 9.2 mg/dL (8.6-10.3); EGFR African American 111.8 (>60); EGFR Non-African American 92.4 (>60); Globulin 2.2 g/dL (2-4); Magnesium 1.7 mg/dL (1.9-2.7); Potassium 3.8 mmol/L (3.5-5.0); Total Bilirubin 0.4 mg/dL (0.2-1.0); Total Protein 6.6 g/dL (6.4-8.9)
[2019-07-03 18:19] LABS: ABS Eosinophils 0.1 10^3/ul (0-0.6); ABS Lymphocytes 2.3 10^3/ul (1.0-4.8); ABS Monocytes 0.4 10^3/ul (0-0.8); ABS Neutrophils 3.1 10^3/ul (1.5-7.7); Eosinophil % 1.4 %; Large Platelets Present; Nucleated Red Blood Cells % 0.1
[2019-07-03] MEDS ORDERED: Magnesium Sulfate 2 GM IV* 2 GM/50 ML BAG IVPB ONE (18:23)
[2019-07-03] MEDS ORDERED: diPHENhydraMINE IV* 50 MG/ML 1 ml VIAL (BENADRYL) IV ONE ×2 (18:36→21:15)
[2019-07-03] MEDS ORDERED: fentaNYL* 50 MCG/ML 2 ML VIAL (100 MCG VIAL) IV SLOW PU ONE (20:31)
--- NOTE | 2019-07-03 20:54 | ED ---
Progress - Progress Note Progress Note: Patient was transferred from [place] with tremors and pain of her head and neck for 3 days, nausea and vomiting for [address] Nguyễn spoke with Dr. Sierra, MRI was ordered, and patient was referred to hospitalist for admission. Patients pain is severe. MRI has been completed, pending read. Toradol avoided until we can be assured no bleeding in the brain. Fentanyl ordered for pain relief. - EKG/XRAY/CT Xray Comments: Brain MRI shows no intracranial abnormalities. Re-Evaluation - Re-Evaluation First Eval Re-Evaluation Time: 18:34 Change: Unchanged Comment: Imaging results from [place] were obtained. They found: 07/01 CT no acute findings. 07/03 CXR no acute cardiopulmonary findings Second Eval Re-Evaluation Time: 21:15 Change: Worse Comment: Patient back from [facility], getting errythmatous itchy rash. Benedryl ordered. Course/Dx - Course Course Of Treatment: Patient was transferred from [place] with tremors and pain of her head and neck for 3 days, nausea and vomiting for [address] Nguyễn spoke with Dr. Sierra, MRI was ordered, and patient was referred to hospitalist for admission. Patients pain is severe. MRI has been completed, pending read. Toradol avoided until we can be assured no bleeding in the brain. Fentanyl ordered for pain relief. - Diagnoses Provider Diagnoses: Neck pain, Headache, Occasional tremors - Provider Notifications Time Discussed With Above Provider: 18:50 Instructed by Provider To: Admit As Inpatient - Per Dr. Sharp and Dr. Sierra, the pt will be admitted for a brain MRI and neurology follow up in the morning. Admit/Transition Orders Completed By ED Provider: Yes Discharge ED - Sign-Out/Discharge Documenting (check all that apply): Patient Departure - Admit - Discharge Plan Condition: Stable Disposition: ADMITTED TO [facility] - Billing Disposition and Condition Condition: STABLE Disposition: Admitted to [facility] - Attestation Statements Document Initiated by Scribe: Yes Documenting Scribe: Zachary Marcelino Provider For Whom Erikaibe is Documenting (Include Credential): Catrachita Vasquez MD. Scribe Attestation: Zachary Johnston, scribed for Catrachita Vasquez MD. on 07/04/19 at 0628. Scribe Documentation Reviewed: Yes Provider Attestation: The documentation as recorded by the scribe, Zachary Marcelino accurately reflects the service I personally performed and the decisions made by me, Catrachita Vasquez MD. Status of Scribe Document: Viewed
[2019-07-03] MEDS ORDERED: Acetaminophen TAB* 325 MG PO PRN (20:59)
[2019-07-03] MEDS ORDERED: Nicotine* 2MG (FRUIT FLAVOR) GUM PO PRN (21:11)
[2019-07-03] MEDS ORDERED: SUMAtriptan TAB* 50 MG PO ONE (21:28)
[2019-07-03] MEDS ORDERED: Enoxaparin(*) 40 MG/0.4 ML SYR SUBCUT SCH (22:00)
--- NOTE | 2019-07-04 00:01 | HP ---
CC: Louisa Levin MD * HISTORY AND PHYSICAL: DATE OF ADMISSION: 07/03/19 PRIMARY CARE PROVIDER: Louisa Levin MD ATTENDING PHYSICIAN: Rashmi Marks MD * (dictated by RUTHIE Claire). CHIEF COMPLAINT: 1. Head and neck pain. 2. Staring spells, occasionally followed by tremors. 3. Right-sided weakness. HISTORY OF PRESENT ILLNESS: Ms. Acosta is a 34-year-old female with a past medical history of exercise-induced asthma, history of migraines, anxiety, and depression, not on any home medications, who presented to the ER today with multiple complaints including head and neck pain, right-sided weakness, and staring spells. The patient states she has been at [place] approximately 3 times for this, Tuesday, Tuesday, and Tuesday and has recently been prescribed metoclopramide and ibuprofen. She complains of head and neck pain from the shoulders circumscribing the entirety of the neck and up the back of the head, over the top of the head and anteriorly to the sinus area. She states that she has had this for approximately 4 days. The patient complains of intermittent chest pain but only in situations of stress and anxiety which occasionally leads to panic attacks. The patient states that she fell yesterday. She reports she stood up, lost her balance, and fell. She is unsure if she hit her head but does believe she lost consciousness because she woke to find her daughter trying to help her up. The patient also reports episodes of cloudy vision followed by staring spells and occasionally followed by head and upper and lower extremity tremors. The patient states that this happens 1 to 2 times per day. She describes it as "zoning" followed by tremors. She sometimes recalls these events. She also is sometimes awake and alert during these events. The patient complains of right-sided weakness at times and notices this most often when she is writing and her right side feels weak. She denies recent travel. She denies insect bites including tick bites. She denies recent ill contacts. She does have a history of migraines and notes that her head and neck pain occasionally feel like migraines but all other associated symptoms do not typically occur with her migraines. She had taken Seroquel in the past but notes that she stopped 2 years ago. She reports approximately 1 year of use with highest dose of 300 mg per day, but again notes that she discontinued this 1 year ago. In the ER, the patient received a full workup including laboratory data. CBC and CMP were relatively benign with a magnesium of 1.7. MRA of the brain and cervical spine have been ordered and are pending. Hospitalist team was asked to evaluate the patient for admission. PAST MEDICAL HISTORY: 1. Exercise-induced asthma. 2. History of migraines. 3. History of anxiety and depression, not on any medications. PAST SURGICAL HISTORY: 1. Bilateral carpal tunnel. 2. x3. HOME MEDICATIONS: 1. Metoclopramide 10 mg p.o. 4 times a day p.r.n. 2. Ibuprofen 600 mg p.o. t.i.d. p.r.n. DRUG ALLERGIES: 1. HYDROCODONE. 2. SULFA. 3. TRAMADOL. FAMILY HISTORY: Paternal grandfather had an [place]. Mother at the age of 32 from brain tumor. Father had a brain tumor at the age of 36. He is still alive. No family history of CVA, diabetes mellitus, or autoimmune disease. SOCIAL HISTORY: The patient smokes one-half to one pack per day for the last 22 years. She drinks less than weekly. She does not use any illicit drugs. 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 She is . She has 3 children and 1 granddaughter. She lives with her children. In the event she is unable to make her own medical decisions, she has appointed her friend, Reddy Bradford to be her surrogate decision maker. REVIEW OF SYSTEMS: A 14-point review of systems has been performed and all the pertinent positives and negatives are in the HPI. All other systems are negative. PHYSICAL EXAMINATION GENERAL: Ms. Acosta is a well-developed, well-nourished, mildly obese young white woman, who is sitting up in bed. She appears to be in no acute distress but is noted to have the shoulders elevated up around the neck and she has a fine tremor in the neck causing the head to rotate back and forth. HEENT: Normocephalic, atraumatic. PERRL. EOMI without nystagmus. Visual garcia grossly intact. Sclerae are nonicteric without injection. Oral mucous membranes are moist. There are no lesions. Pharynx is clear. The tongue is at midline. Palate elevates symmetrically. Neck is tender to palpation. The entirety of the posterior neck with tenderness at the posterior SCM bilaterally. Again, the patient has her SCM engaged causing elevation of the bilateral shoulders. This area is tender to palpation. PULMONARY: Symmetrical chest expansion without use of accessory muscles. Clear to auscultation bilaterally without rhonchi, wheeze, or rales. CARDIOVASCULAR: Regular rate and rhythm with S1, S2 present. There are no murmurs, rubs, clicks, or gallops. There is no JVD or peripheral edema. Radial and pedal pulses are palpable. ABDOMEN: Obese. Bowel sounds in all quadrants. Soft and nontender to palpation. MUSCULOSKELETAL: Full range of motion without pain or deformities. NEURO: The patient is awake. She is alert and oriented x3. Cranial nerves II through XII are grossly intact. There is no nystagmus. The patient is able to move all her extremities. Her motor strength is equal on both sides with a grade of 5/5 bilaterally in upper and lower extremities. [employer] strength is equal. The patient does not have any extremity tremors but has head tremors throughout the entirety of this interview. DIAGNOSTIC STUDIES AND LABORATORY DATA: CBC: WBC 52, hemoglobin 14.2, hematocrit 43, MCV 85, platelets 183. CMP: Sodium 138, potassium 3.8, chloride 106, carbon dioxide 25, BUN 6, creatinine 0.73. Magnesium 1.7. ASSESSMENT AND PLAN: Ms. Acosta is a 34-year-old female with history of migraines, depression and anxiety, who presented to the ER today with complaints of head and neck pain, staring spells, right-sided weakness. She was transferred from [place] for neurology consult. She will be admitted for: 1. Head tremor. The patient has tenderness to palpation throughout the neck and the head. She is seen with her SCM flexed bilaterally, which is likely contributing to her head and neck pain. I believe that perhaps her head pain is related to her history of migraines. I will order one dose of sumatriptan and monitor for improvement. I believe that her neck pain is likely musculoskeletal in nature as the patient has flexed shoulders for extended periods of time and is tender to palpation in this area. I will give her cyclobenzaprine. In terms of her head tremor, this maybe related to TD, although, it seems like a late effect with sudden onset. Neurology will consult and see the patient tomorrow. Meanwhile, a head and neck MRI is pending. I will add on TSH. 2. Staring spells. The patient reports 1 to 2 staring spells per day. She notes that these are sometimes followed by head, neck, and extremity tremors. She states that she occasionally remembers these episodes and she is occasionally awake during these episodes and responding. I wonder if these are partial or absent seizures. Again, Neuro will see the patient tomorrow. In the meantime, I will order an EEG. 3. Tobacco abuse. Nicotine gum. 4. DVT prophylaxis. According to DVT Risk Assessment, the patient scores 1 placing her at low risk. She will be started on Lovenox. 5. Code status. Full code. TIME SPENT: Approximately 60 minutes was spent on this admission, greater than half of that time was spent [id number] with the patient obtaining history, performing physical, and reviewing the plan of care. The case has been discussed with my attending, Dr. Marks, who is in agreement with the plan of care. RUTHIE DE SOUZA [id number]/[facility] #: [id number] VLADIMIR
[2019-07-04] MEDS: Cyclobenzaprine TAB* 10 MG PO PRN ×2 (00:11→11:16)
[2019-07-04] MEDS: oxyCODONE/Acetamin 5/325 MG* TAB PO PRN ×4 (00:12→13:45)
[2019-07-04] MEDS ORDERED: Diazepam TAB(*) 5 MG PO PRN (00:25)
[2019-07-04] MEDS ORDERED: Diazepam TAB(*) 5 MG PO ONE (04:15)
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
[2019-07-04] MEDS ORDERED: Ondansetron TAB* 4 MG PO PRN (13:42)
[2019-07-04 16:05] VITALS: BP 108/67
--- NOTE | 2019-07-04 19:55 | EEG ---
ELECTROENCEPHALOGRAPHY: DATE OF STUDY: ROOM #452 DATE OF DICTATION: 07/04/19 PATIENT OF: RUTHIE Claire. CLINICAL PROBLEM: This is a 34-year-old woman being evaluated for head tremors , but also staring spells to rule out possible seizures. MEDICATIONS: Include: 1. Lovenox. 2. Cyclobenzaprine. 3. Diazepam. 4. Percocet. REPORT: The patient's awake background cerebral activity consists of moderate amplitude posterior dominant 9 Hz rhythm. This attenuates with eye opening, reappears with eye closure. With the patient drowsy, there is slowing into the theta range, but the patient never falls fully asleep No epileptiform potentials, focal abnormalities or major asymmetries of background are noted. CLINICAL IMPRESSION: This awake and drowsy EEG is within normal limits. [id number]/[facility] #: [id number] MTDD
--- NOTE | 2019-07-05 05:04 | DS ---
CC: Dr. Louisa Levin; Dr. Sierra * DISCHARGE SUMMARY: DATE OF ADMISSION: 07/03/19 DATE OF DISCHARGE: 07/04/19 PRIMARY CARE PROVIDER: Dr. Louisa Levin. OTHER PROVIDER: Dr. Sierra. ATTENDING PHYSICIAN: Aleta Tejeda MD * (dictated by RUTHIE Claire). PRIMARY DIAGNOSES: 1. Tremors, likely stress induced. 2. Staring spells concerning for partial seizure. 3. Headache and neck pain likely migraine and stress induced. SECONDARY DIAGNOSES: 1. Exercise-induced asthma. 2. Migraines. 3. History of anxiety, depression. Currently not on medications. STUDIES WHILE IN THE HOSPITAL: 1. MRI of brain without, impression: No acute intracranial abnormality. 2. MRI cervical spine without, impression: No acute abnormality. CONSULTATIONS WHILE IN THE HOSPITAL: Neurology. I talked to the ER physician in [place] before accepting transfer and asked specifically whether she was having any possible seizures because I discussed with her that we do not have the capabilities of prolonged EEG monitoring. She said tremors were not seizures and she had no symptoms suggestive of seizures. She does have the staring spells, where she has some alteration of interaction and she does need an EEG. Discussed with the patient that if the EEG is normal given frequency of staring spells, we should do prolonged 3-day EEG. It can be done as an outpatient. The story that I have is most likely that this is stress related and therefore I would not transfer to [facility] at this point, but obtain prolonged ambulatory EEG in near future. Tremor may be stress related or it may be tremor that is exacerbated by stress. We will speak with hospitalist about treating for stress, anxiety, depression, sometimes this can help tremors. Recommending physical therapy for neck. Referred to hospitalist team for chest pain. DISCHARGE MEDICATIONS: Home medications: None. New home medications: 1. Cyclobenzaprine 10 mg p.o. t.i.d. p.r.n. 2. Diazepam 2.5 mg p.o. q.8 hours p.r.n. anxiety. Maximum daily dose 3 tabs. 3. Nicotine gum 2 mg p.o. q.2 hours p.r.n. craving. Discontinued home medications: 1. Metoclopramide. 2. Ibuprofen. HISTORY OF PRESENT ILLNESS/HOSPITAL COURSE: Ms. Acosta is a 34-year-old female with past medical history of exercise-induced asthma, migraines, depression and anxiety, who presented to the ER with a multitude of complaints including head and neck pain, right-sided weakness, staring spells, and chest pain related to anxiety and stress. For full and complete details please see the history and physical dictated by RUTHIE Claire, but in short, the patient presents with these symptoms. 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 She notes that she went to [place] approximately 3 times for these symptoms and has not resolved with interventions from there. She was then transferred here for Neurology and further imaging. Dr. Sierra consulted and saw the patient and felt that her symptoms were related to stress. The patient agrees that she often has physical manifestations during times of stress and believes that this could be related to stress. She was therefore placed on infrequent doses of Valium with follow up to her primary care provider regarding further management. She should be considered for antidepressants and eventually be weaned off of Valium. Regarding her neck and head pain, I suspect that this is related to migraine and is likely stress induced, although it did not improve with sumatriptan. When the patient was seen in her room, her shoulders are elevated and she has muscle soreness and therefore cyclobenzaprine has been ordered for muscle spasms in the shoulders. Valium has been ordered for stress and anxiety and again should only be used short term in the acute stress phase and will hopefully relieve head and neck pain. I believe that her tremors are related to stress and it should also be relieved with benzodiazepines. The patient did receive an MRI of the head and neck, which was within normal limits. At this time, the patient is stable for discharge. Her headache is still present, but faint. She reports improvement in neck pain with muscle relaxers. She reports very fine to non-existent tremor at this time with the use of Valium. Her chest pain has resolved and only occurs with stress. Ms. Acosta is stable for discharge to home. PHYSICAL EXAMINATION: Vital Signs: Temperature 97.8 oral, heart rate 66, respiratory rate 18, oxygen saturation 100% on room air, blood pressure 108/67. General: Ms. Aocsta is a well-developed, well-nourished, obese, young white woman who is sitting up in bed. She appears to be in no acute distress. Her shoulders are relaxed and she has a very very fine tremor in the head/neck area. There are no extremity tremors. HEENT: PERRL, EOMI. Nonicteric sclerae. Hearing is grossly intact. Oral mucous membranes are moist. There are no lesions. The pharynx is clear. The tongue is at midline. Palate elevates symmetrically. Cardiovascular: Regular rate and rhythm with S1, S2 present. No murmurs, rubs, clicks, or gallops. There is no JVD or peripheral edema. Radial and pedal pulses are palpable. Pulmonary: Symmetrical chest expansion without use of accessory muscles. Clear to auscultation bilaterally without rhonchi, wheezes, or rales. Abdomen: Obese. Bowel sounds in all quadrants. Soft, nontender to palpation. No hepatospleno-megaly noted. Musculoskeletal: Full range of motion without pain or deformities. Gait without impairment. Neuro: Cranial nerves II through XII are grossly intact. The patient is awake. She is alert and oriented x3. Muscle strength 5/5 bilaterally in upper and lower extremities. DISCHARGE PLAN: Ms. Acosta will be discharged to home. CONDITION: Fair. DIET: Resume home diet. ACTIVITY: 1. As tolerated. 2. PT for head, neck pain. EDUCATION: 1. Follow up with primary care provider in 4 to 7 days, discuss recent hospitalization. 2. Follow up with Neurology, Dr. Sierra within 1 month. Office will call with appointment date and time, but if you do not hear from them within 1 week, please call office number given. 3. Return to the ER or nearest hospital if you experience any return or worsening of symptoms, chest pain or discomfort, dizziness, lightheadedness, loss of consciousness, high fevers, chills, night sweats, or any other worrisome signs or symptoms. This is a summarized report of a complex medical history and hospital stay. For further details, please see the entire medical record. TIME SPENT: Approximately 40 minutes were spent on this discharge, greater than half that time was spent [id number] with the patient discussing discharge plans and instructions. IZABELA WOODS, RUTHIE [id number]/[facility] #: [id number] [facility]
== END 2019-07-04 16:55 | disposition home or self-care (01) ==
LOC: ED 16:45 → MEDTELE 20:59
PROVIDERS: ADMIT Internal Medicine; ATTEND Internal Medicine
DX: R25.1 Tremor, unspecified (principal); M54.2 Cervicalgia; J45.990 Exercise induced bronchospasm; G43.909 Migraine, unspecified, not intractable, without status migrainosus; F41.9 Anxiety disorder, unspecified; F32.9 Major depressive disorder, single episode, unspecified; Z79.899 Other long term (current) drug therapy; H53.8 Other visual disturbances; F17.210 Nicotine dependence, cigarettes, uncomplicated
CPT/HCPCS: 36415; 70551; 72141; 80053; 82550; 83735; 84443; 85025; 93005; 95816; 96365; 96366; 96372; 96375; 99284; A9270-GY; G0378; J1200; J1650; J3010; J3475

== ENCOUNTER 2019-08-14 09:56 | Emergency (ER) | payer OTHER ==
--- OUTSIDE RECORDS SUMMARY | 2019-08-14 10:02 | XMS REPORT | Summary of Care ---
:1985 Demographics Phone Unavailable Preferred Language Unknown Marital Status Unknown Restorationism Affiliation Unknown Race Unknown Ethnic Group Unknown Author Organization [facility] Address [address] [place] [address] Care Team Providers Name Role Phone Unavailable Primary Care Provider Unavailable Encounter Details Date Type Department Care Team Description 07/03/2019 Hospital Encounter [address] [id number] Allergies Not on Filedocumented as of this encounter (statuses as of 07/18/2019) Medications Not on filedocumented as of this encounter (statuses as of 07/18/2019) Active Problems Not on filedocumented as of this encounter (statuses as of 07/18/2019) Social History Tobacco Use Types Packs/Day Years Used Date Never Assessed Sex Assigned at Date Recorded Not on file Job Start Date Occupation Industry Not on file Not on file Not on file Travel History Travel Start Travel End No recent travel history available. documented as of this encounter Last Filed Vital Signs Not on filedocumented in this encounter Plan of Treatment Not on filedocumented as of this encounter Results Not on filedocumented in this encounter
--- OUTSIDE RECORDS SUMMARY | 2019-08-14 10:02 | XMS REPORT | Continuity of Care Document ---
:1985 External Reference #:[id number] Author Name Ruy Oliveira M.D., [facility] Address [address] [place] [address] Care Team Providers Name Role Phone Louisa Levin M.D. - Family Medicine Care Team Information [employer] [phone] Problems Active Problems Provider Date Syncope and collapse Ruy Oliveira M.D., [facility] Onset: 07/18/2015 Palpitations Ruy Oliveira M.D., [facility] Onset: 07/18/2015 Social History Type Date Description Comments Sex Unknown Tobacco Use Start: Unknown Patient is a current cigarette smoker, smokes every day Tobacco Use Start: Unknown Currently smokes 1-5 Cigarettes Daily Smoking Status Reviewed: 08/08/19 Currently smokes 1-5 Cigarettes Daily ETOH Use Denies alcohol use Recreational Drug Use Denies Drug Use Allergies, Adverse Reactions, Alerts Active Allergies Reaction Severity Comments Date Sulfa Drugs 07/18/2015 Medications Description No Active Medications Immunizations Description No Information Available Vital Signs Date Vital Result Comment 08/08/2019 3:11pm BP Systolic Sitting Right Arm 116 mmHg BP Diastolic Sitting Right Arm 84 mmHg Heart Rate 91 /min Respiratory Rate 18 /min Height 62 inches 5'2" Weight 170.00 lb BMI (Body Mass Index) 31.1 kg/m2 BSA (Body Surface Area) 1.78 m2 [place] body weight in kilograms 50 kg O2 % BldC Oximetry 99 % Ra 07/18/2015 10:10am Heart Rate 75 /min Respiratory Rate 16 /min Height 62 inches 5'2" Weight 171.00 lb BMI (Body Mass Index) 31.3 kg/m2 BSA (Body Surface Area) 1.79 m2 Results Description No Information Available Procedures Date Code Description Status 08/08/2019 18702 EKG-Tracing And Report Completed Medical Devices Description No Information Available Encounters Type Date Location Provider Dx Diagnosis Office Visit 08/08/2019 Cardiology Office Ruy Oliveira R00.2 Palpitations 3:00p [facility] [place], [facility] R55 Syncope and collapse Assessments Date Code Description Provider 08/08/2019 R00.2 Palpitations Ruy Olievira M.D., [facility] 08/08/2019 R55 Syncope and collapse Ruy Oliveira M.D., [facility] Plan of Treatment Future Appointment(s):09/21/2019 1:20 pm - Ruy Oliveira M.D., [facility] at Cardiology Tcpfdg5008/08/2019 - Ruy Oliveira M.D., FACCR00.2 PalpitationsNew Orders:Echocardiogram, Exercise Stress, Ordered: 08/08/2013 Day Cardiac Event Monitor, Ordered: 08/08/19Comments:Her presentation is rather confusing to me. It seems that none of her symptoms are indeed cardiological but they are neurological or psychosomatic in nature. To more confidently rule out arrhythmias.R55 Syncope and collapseNew Orders:Echocardiogram, Exercise Stress, Ordered: 08/08/19Comments:I doubt she passed out from an arrhythmia. Yet I would like to make sure she does not have structural heart problems.AllNew Medication:No Active Medications -Follow up:After studies are completed. Functional Status Functional Condition Comment Date Status Glasses Active Mental Status Description No Information Available Referrals Description No Information Available
--- OUTSIDE RECORDS SUMMARY | 2019-08-14 10:02 | XMS REPORT | Continuity of Care Document ---
:1985 External Reference #:[id number] Author Name Louisa Levin M.D. Address [address] [facility] [address] [place] [address] Problems Active Problems Provider Date Angioedema Onset: Headache Onset: Panic attack Onset: Social History Type Date Description Comments Sex Unknown ETOH Use Rarely consumes alcohol Tobacco Use Start: Unknown Patient is a current smoker, smokes every day Recreational Drug Use Denies Drug Use Smoking Status Reviewed: 07/12/19 Patient is a current smoker, smokes every day Allergies, Adverse Reactions, Alerts Active Allergies Reaction Severity Comments Date Hydrocodone Hives 07/03/2019 Tramadol Vomiting 07/03/2019 Medications Active Medications SIG Qnty Indications Ordering Provider Date Nicotine Polacrilex Q2H 90units F17.210 Unknown 07/04/2019 2mg Gum History Medications Cyclobenzaprine HCL Three Times 30tabs G43.009 Unknown 07/04/2019 - 10mg Tablets Daily 07/21/2019 M54.2 Diazepam 5mg Q8H 21tabs F41.0 Unknown 07/04/2019 - 06/2019 Tablets F41.9 G43.009 Ibuprofen Three Times Daily Unknown 07/03/2019 - 600mg Tablets 07/04/2019 Metoclopramide HCL Four Times Daily Unknown 07/03/2019 - 10mg Tablets 07/04/2019 Ibuprofen 3 Times A Day as 30tabs M54.5 Unknown 07/02/2019 - 600mg Tablets Needed as needed 07/21/2019 for Pain M54.2 Metoclopramide HCL 4 Times A Day as 10tabs R11.2 Unknown 07/02/2019 - 10mg Tablets needed for Nausea, 07/21/2019 headache G43.009 Immunizations Description No Information Available Vital Signs Date Vital Result Comment 08/07/2019 1:14pm BP Systolic 118 mmHg BP Diastolic 64 mmHg Height 62 inches 5'2" Weight 172.00 lb BMI (Body Mass Index) 31.5 kg/m2 Heart Rate 90 /min Respiratory Rate 18 /min 07/12/2019 10:00am BP Systolic 125 mmHg BP Diastolic 64 mmHg Height 62 inches 5'2" Weight 181.00 lb BMI (Body Mass Index) 33.1 kg/m2 Heart Rate 99 /min Respiratory Rate 16 /min Results Test Acquired Date Facility Test Result H/L Range Note Comp Metabolic 07/03/2019 [facility] Sodium 138 mmol/L Normal 135- 145 Panel Potassium 3.8 mmol/L Normal 3.5-5.0 Chloride 106 mmol/L Normal 101-111 Co2 Carbon Dioxide 25 mmol/L Normal 22-32 Anion Gap 7 mmol/L Normal 2-11 Glucose 76 mg/dL Normal 70-100 Blood Urea Nitrogen 6 mg/dL Normal 6-24 Creatinine 0.73 mg/dL Normal 0.51-0.95 BUN/Creatinine Ratio 8.2 Normal 8-20 Calcium 9.2 mg/dL Normal 8.6-10.3 Total Protein 6.6 g/dL Normal 6.4-8.9 Albumin 4.4 g/dL Normal 3.2-5.2 Globulin 2.2 g/dL Normal 2-4 Albumin/Globulin Ratio 2.0 Normal 1-3 Total Bilirubin 0.40 mg/dL Normal 0.2-1.0 Alkaline Phosphatase 84 U/L Normal 34-104 Alt 11 U/L Normal 7-52 Ast 15 U/L Normal 13-39 Egfr Non- 92.4 >60 Egfr 111.8 >60 1 Laboratory test finding 07/03/2019 [facility] Magnesium 1.7 mg/dL Low 1.9-2.7 Creatine Kinase(CK) 21 U/L Normal 10-223 CBC Auto Diff 07/03/2019 [facility] White Blood 5.9 10^3/uL Normal 3.5-10.8 Count Red Blood Count 4.99 10^6/uL High 3.70-4.87 Hemoglobin 14.4 g/dL Normal 12.0-16.0 Hematocrit 43 % Normal 35-47 Mean Corpuscular Volume 85 fL Normal 80-97 Mean Corpuscular Hemoglobin 29 pg Normal 27-31 Mean Corpuscular HGB Conc 34 g/dL Normal 31-36 Red Cell Distribution Width 14 % Normal 10-15 Platelet Count 183 10^3/uL Normal 150-450 Mean Platelet Volume 10.6 fL High 7.4-10.4 Large Platelets Present Abs Neutrophils 3.1 10^3/uL Normal 1.5-7.7 Abs Lymphocytes 2.3 10^3/uL Normal 1.0-4.8 Abs Monocytes 0.4 10^3/uL Normal 0-0.8 Abs Eosinophils 0.1 10^3/uL Normal 0-0.6 Abs Basophils 0.0 10^3/uL Normal 0-0.2 Abs Nucleated RBC 0.0 10^3/uL Granulocyte % 51.7 % Lymphocyte % 39.0 % Monocyte % 7.4 % Eosinophil % 1.4 % Basophil % 0.5 % Nucleated Red Blood Cells % 0.1 Laboratory 07/03/2019 [facility] TSH (Thyroid 1.24 Normal 0.34-5.60 test finding Stim Horm) mcIU/mL Laboratory 07/03/2019 [place] Urine HCG NEGATIVE Negative 2, 3 test finding (Qualitative) Drugs Of 07/03/2019 [facility] Amphetamines Negative Abuse-Urine (Urine) Screen 7 Barbiturates (Urine) Negative Benzodiazepines (Urine) POSITIVE High Cannabinoids (Urine) Negative Cocaine Metabolite (Urine) Negative Methadone (Urine) Negative Opiates (Urine) Negative Urine Cutoffs * 4 Laboratory test 07/03/2019 [facility] Lyme IgM (Reflex < 0.80 index 0.00- 0.79 5 finding Western Blot) Laboratory test 07/03/2019 [facility] Treponema Non Reactive Non Reactive 6 finding Antibody [employer] 1 Because ethnic data is not always readily available, this report includes an eGFR for both -Americans and non- Americans. The National Kidney Disease Education Program (NKDEP) does not endorse the use of the MDRD equation for patients that are not between the ages of 18 and 70, are , have extremes of body size, muscle mass, or nutritional status, or are non- or non-. According to the National Kidney Foundation, irrespective of diagnosis, the stage of the disease is based on the level of kidney function: Stage Description GFR(mL/min/1.73 m(2)) 1 Kidney damage with normal or decreased GFR 90 2 Kidney damage with mild decrease in GFR 60-89 3 Moderate decrease in GFR 30-59 4 Severe decrease in GFR 15-29 5 Kidney failure <15 (or dialysis) 2 SHAKING, SANTOS, NECK PAIN, CP 3 FIRST MORNING SPECIMENS GENERALLY CONTAIN THE HIGHEST CONCENTRATION OF HCG AND ARE RECOMMENDED FOR EARLY DETECTION OF . Method: Quidel QuickVue One-Step Immunoassay 4 URINE SPECIMENS ARE SCREENED AT THE LISTED CUTOFFS DRUG CLASS INITIAL TEST LEVEL Amphetamines 1000 ng/mL Barbiturates 200 ng/mL Benzodiazepines 200 ng/mL Cannabinoids 50 ng/mL Cocaine Metabolite 300 ng/mL Methadone 300 ng/mL Opiates 300 ng/mL Any PRESUMPTIVE POSITIVE findings are UNCONFIRMED. Confirmatory testing is suggested if findings are unexpected. Please contact laboratory if confirmatory testing is desired. SPECIMENS ARE HELD FOR 72 HOURS. 5 Negative <0.80 Equivocal 0.80 - 1.19 Positive >1.19 IgM levels may peak at 3-6 weeks post infection, then gradually decline. Performed at: - [facility] [id number] Core Rescuer: Beena Lora MD, Phone: [phone] Performed at: [facility] [id number] Core Rescuer: Wilbert Garcia MD, Phone: [phone] Procedures Date Code Description Status 08/07/2019 17238 EKG Completed 07/12/2019 99942 EKG Completed 07/12/2019 99565 Audiometry, Bekesy, Screening Completed Medical Devices Description No Information Available Encounters Type Date Location Provider Dx Diagnosis Office Visit 08/07/2019 [place] [facility] Louisa Levin, J45.909 Unspecified asthma, 1:15p M.D. uncomplicated K58.0 Irritable bowel syndrome with diarrhea L20.9 Atopic dermatitis, unspecified J30.9 Allergic rhinitis, unspecified R00.2 Palpitations R11.2 Nausea with vomiting, unspecified F17.210 Nicotine dependence, cigarettes, uncomplicated G43.009 Migraine w/o aura, not intractable, w/o status migrainosus H53.30 Unspecified disorder of binocular vision F41.9 Anxiety disorder, unspecified F33.9 Major depressive disorder, recurrent, unspecified G47.00 Insomnia, unspecified F41.0 Panic disorder [episodic paroxysmal anxiety] R25.1 Tremor, unspecified M54.2 Cervicalgia M54.5 Low back pain R55 Syncope and collapse J96.91 Respiratory failure, unspecified with hypoxia I49.9 Cardiac arrhythmia, unspecified Office Visit 07/12/2019 9:45a [place] [facility] Louisa Levin Z00.01 Encounter for [facility] general adult medical exam w abnormal findings J45.909 Unspecified asthma, uncomplicated K58.0 Irritable bowel syndrome with diarrhea L20.9 Atopic dermatitis, unspecified J30.9 Allergic rhinitis, unspecified R00.2 Palpitations R11.2 Nausea with vomiting, unspecified F17.210 Nicotine dependence, cigarettes, uncomplicated G43.009 Migraine w/o aura, not intractable, w/o status migrainosus H53.30 Unspecified disorder of binocular vision F41.9 Anxiety disorder, unspecified F33.9 Major depressive disorder, recurrent, unspecified G47.00 Insomnia, unspecified F41.0 Panic disorder [episodic paroxysmal anxiety] R25.1 Tremor, unspecified M54.2 Cervicalgia M54.5 Low back pain Assessments Date Code Description Provider 08/07/2019 J45.909 Unspecified asthma, uncomplicated Louisa Levin M.D. 08/07/2019 K58.0 Irritable bowel syndrome with diarrhea Louisa Levin M.D. 08/07/2019 L20.9 Atopic dermatitis, unspecified Louisa Levin M.D. 08/07/2019 J30.9 Allergic rhinitis, unspecified Louisa Levin M.D. 08/07/2019 R00.2 Palpitations Louisa Levin M.D. 08/07/2019 R11.2 Nausea with vomiting, unspecified Louisa Levin M.D. 08/07/2019 F17.210 Nicotine dependence, cigarettes, Louisa Levin M.D. uncomplicated 08/07/2019 G43.009 Migraine without aura, not intractable, Louisa Levin M.D. without status migrainosus 08/07/2019 H53.30 Unspecified disorder of binocular vision Louisa Levin M.D. 08/07/2019 F41.9 Anxiety disorder, unspecified Louisa Levin M.D. 08/07/2019 F33.9 Major depressive disorder, recurrent, Louisa Levin M.D. unspecified 08/07/2019 G47.00 Insomnia, unspecified Louisa Levin M.D. 08/07/2019 F41.0 Panic disorder [episodic paroxysmal anxiety] Louisa Levin M.D. 08/07/2019 R25.1 Tremor, unspecified Louisa Levin M.D. 08/07/2019 M54.2 Cervicalgia Louisa Levin M.D. 08/07/2019 M54.5 Low back pain Louisa Levin M.D. 08/07/2019 R55 Syncope and collapse Louisa Levin M.D. 08/07/2019 J96.91 Respiratory failure, unspecified with Louisa Levin M.D. hypoxia 08/07/2019 I49.9 Cardiac arrhythmia, unspecified Louisa Levin M.D. 07/26/2019 J45.909 Unspecified asthma, uncomplicated Louisa Levin M.D. 07/26/2019 K58.0 Irritable bowel syndrome with diarrhea Louisa Levin M.D. 07/26/2019 L20.9 Atopic dermatitis, unspecified Louisa Levin M.D. 07/26/2019 J30.9 Allergic rhinitis, unspecified Louisa Levin M.D. 07/26/2019 R00.2 Palpitations Louisa Levin M.D. 07/26/2019 R11.2 Nausea with vomiting, unspecified Louisa Levin M.D. 07/26/2019 F17.210 Nicotine dependence, cigarettes, Louisa Levin M.D. uncomplicated 07/26/2019 G43.009 Migraine without aura, not intractable, Louisa Levin M.D. without status migrainosus 07/26/2019 H53.30 Unspecified disorder of binocular vision Louisa Levin M.D. 07/26/2019 F41.9 Anxiety disorder, unspecified Louisa Levin M.D. 07/26/2019 F33.9 Major depressive disorder, recurrent, Louisa Levin M.D. unspecified 07/26/2019 G47.00 Insomnia, unspecified Louisa Levin M.D. 07/26/2019 F41.0 Panic disorder [episodic paroxysmal anxiety] Louisa Levin M.D. 07/26/2019 R25.1 Tremor, unspecified Louisa Levin M.D. 07/26/2019 M54.2 Cervicalgia Louisa Levin M.D. 07/26/2019 M54.5 Low back pain Louisa Levin M.D. 07/12/2019 Z00.01 Encounter for general adult medical Louisa Levin M.D. examination with abnormal findings 07/12/2019 J45.909 Unspecified asthma, uncomplicated Louisa Levin M.D. 07/12/2019 K58.0 Irritable bowel syndrome with diarrhea Louisa Levin M.D. 07/12/2019 L20.9 Atopic dermatitis, unspecified Louisa Levin M.D. 07/12/2019 J30.9 Allergic rhinitis, unspecified Louisa Levin M.D. 07/12/2019 R00.2 Palpitations Louisa Levin M.D. 07/12/2019 R11.2 Nausea with vomiting, unspecified Louisa Levin M.D. 07/12/2019 F17.210 Nicotine dependence, cigarettes, Louisa Levin M.D. uncomplicated 07/12/2019 G43.009 Migraine without aura, not intractable, Louisa Levin M.D. without status migrainosus 07/12/2019 H53.30 Unspecified disorder of binocular vision Louisa Levin M.D. 07/12/2019 F41.9 Anxiety disorder, unspecified Louisa Levin M.D. 07/12/2019 F33.9 Major depressive disorder, recurrent, Louisa Levin M.D. unspecified 07/12/2019 G47.00 Insomnia, unspecified Louisa Levin M.D. 07/12/2019 F41.0 Panic disorder [episodic paroxysmal anxiety] Louisa Levin M.D. 07/12/2019 R25.1 Tremor, unspecified Louisa Levin M.D. 07/12/2019 M54.2 Cervicalgia Louisa Levin M.D. 07/12/2019 M54.5 Low back pain Louisa Levin M.D. Plan of Treatment 08/07/2019 - Louisa Levin M.D.J45.909 Unspecified asthma, uncomplicatedComments:MDI / NEBULIZER TX PRN AVOID EXPOSURE TO SMOKING OR FUMES SMOKING ZAPSAPYLAF01.0 Irritable bowel syndrome with diarrheaComments:TYLENOL OR MOTRIN PRNINCREASE PO FLUIDF/U EXJQCDVCS89.9 Atopic dermatitis, unspecifiedComments:SKIN CARE INSTRUCTIONS EUCERIN CREAM OR BABY OIL 2-3 APPLICATION PER DAYUSE MOISTURIZING SOAPAVOID PROLONGED WATER EXPOSUREAVOID USING HOT WATER IN KTZTOEK63.9 Allergic rhinitis, unspecifiedComments:INCREASE PO FLUID USE ANTIHISTAMINE PRN SECOND HAND SMOKING AVOIDANCE SMOKING AYCUGLWOUC98.2 PalpitationsComments:FVPEAAFLXULEUJUL89.2 Nausea with vomiting, unspecifiedComments:INCREASE PO FLUID CAIO DIETF17.210 Nicotine dependence, cigarettes, uncomplicatedComments:SMOKING CESSATION COUNCELLING MORE THAN 4 MINUTES SPENT DISSUCUSING SMOKING CESSATION XKVXDFA67.009 Migraine without aura , not intractable, without status migrainosusComments:TYLENOL OR MOTRIN PRNRELAXATION/AVOID GBLXPJOYQZ34.30 Unspecified disorder of binocular visionComments:USE GLASSES/CONTACTSF/U WITH JNPQYQFMVNSEYX61.9 Anxiety disorder , unspecifiedComments:COUNCELLING AND REASSURANCE RELAXATION TECHNIQUESAVOID STRESSORS IN LIFE AVOID ALL ENERGY/HIGH CAFFEINE DRINKS DUR MIORJYTC36.9 Major depressive disorder, recurrent, unspecifiedComments:COUNCELLING AND REASSURANCE RELAXATION TECHNIQUESAVOID STRESSORS IN LIFE AVOID ALL ENERGY/HIGH CAFFEINE ZKKSCJG31.00 Insomnia, unspecifiedComments:COUNCELLING AND REASSURANCE RELAXATION TECHNIQUESAVOID STRESSORS IN LIFE AVOID ALL ENERGY/HIGH CAFFEINE DRINKS DUR FSDVBFRC41.0 Panic disorder [episodic paroxysmal anxiety]Comments: COUNCELLING AND REASSURANCE RELAXATION TECHNIQUESSTRESSORS IN LIFE AVOID ALL ENERGY/HIGH CAFFEINE DRINKS DUR NHEOIMIS56.1 Tremor, unspecifiedComments: OBSERVE AVOID ETOH RSHMSL41.2 CervicalgiaComments:EXERCISE/HEAT /MESSAGEAVOID HEAVY LIFTING WT LOSSTYLENOL OR MOTRIN PRNM54.5 Low back painComments:EXERCISE/ HEAT /MESSAGEAVOID HEAVY LIFTING WT LOSSTYLENOL OR MOTRIN PRNR55 Syncope and collapseNew Xrays:Holter Monitor More Than 48 HRS, Ordered: 08/07/19Comments: OBSERVE VHMJZQC25.91 Respiratory failure, unspecified with hypoxiaReferral: Ruy Oliveira MD, Cardiology/Phys/SxdukX87.9 Cardiac arrhythmia, unspecifiedComments:CARDIOLOGY CONSULTSPENT EXTENDED TIME WITH COUNCELLING ON DX AND POSSIBLE RELATION TO HER RECENT SYNCOPE AND RESP. FAILURE ISSUE Functional Status Description No Information Available Mental Status Description No Information Available Referrals Refer to Reason for Referral Status Appt Date Ruy Oliveira MD Sent [address] [place] [address] [phone]
--- OUTSIDE RECORDS SUMMARY | 2019-08-14 10:02 | XMS REPORT | Continuity of Care Document ---
:1985 External Reference #:[id number] Author Name Louisa Levin M.D. Address [address] [place] [address] Problems Active Problems Provider Date Angioedema Onset: Headache Onset: Panic attack Onset: Social History Type Date Description Comments Sex Unknown ETOH Use Rarely consumes alcohol Tobacco Use Start: Unknown Patient is a current smoker, smokes every day Recreational Drug Use Denies Drug Use Allergies, Adverse Reactions, Alerts Active Allergies Reaction Severity Comments Date Hydrocodone Hives 07/03/2019 Tramadol Vomiting 07/03/2019 Medications Active Medications SIG Qnty Indications Ordering Provider Date Cyclobenzaprine HCL Three Times 30tabs G43.009 Unknown 07/04/2019 10mg Daily Tablets M54.2 Diazepam 5mg Tablets Q8H 21tabs F41.0 Unknown 2019 F41.9 G43.009 Nicotine Polacrilex Q2H 90units F17.210 Unknown 07/04/2019 2mg Gum Ibuprofen 3 Times A Day as Needed 30tabs M54.5 Unknown 07/02/2019 600mg Tablets as needed for Pain M54.2 Metoclopramide HCL 4 Times A Day as needed 10tabs R11.2 Unknown 07/02/2019 10mg Tablets for Nausea, headache G43.009 History Medications Ibuprofen Three Times Daily Unknown 07/03/2019 - 07/04/2019 600mg Tablets Metoclopramide HCL Four Times Daily Unknown 07/03/2019 - 07/04/2019 10mg Tablets Ibuprofen Once Unknown 01/11/2019 - 07/03/2019 200mg Capsules Immunizations Description No Information Available Vital Signs Date Vital Result Comment 07/12/2019 10:00am BP Systolic 125 mmHg BP Diastolic 64 mmHg Height 62 inches 5'2" Weight 181.00 lb BMI (Body Mass Index) 33.1 kg/m2 Heart Rate 99 /min Respiratory Rate 16 /min Results Test Acquired Date Facility Test Result H/L Range Note Comp Metabolic 07/03/2019 [facility] Sodium 138 mmol/L Normal 135- 145 Panel [...] 111.8 >60 1 Laboratory test finding 07/03/2019 [facility] Magnesium 1.7 mg/dL Low 1.9-2.7 Creatine Kinase(CK) 21 U/L Normal 10-223 CBC Auto Diff 07/03/2019 [facility] White Blood 5.9 10^3/uL Normal 3.5-10.8 Count [...] Red Blood Cells % 0.1 Laboratory 07/03/2019 [facility] TSH (Thyroid 1.24 Normal 0.34-5.60 test finding Stim Horm) mcIU/mL Laboratory 07/03/2019 [place] Urine HCG NEGATIVE Negative 2, 3 test finding (Qualitative) Drugs Of 07/03/2019 [place] Amphetamines Negative Abuse-Urine (Urine) Screen 7 Barbiturates (Urine) Negative Benzodiazepines (Urine) POSITIVE High Cannabinoids (Urine) Negative Cocaine Metabolite (Urine) Negative Methadone (Urine) Negative Opiates (Urine) Negative Urine Cutoffs * 4 Laboratory test 07/03/2019 [place] Lyme IgM (Reflex < 0.80 index 0.00- 0.79 5 finding Western Blot) Laboratory test 07/03/2019 [facility] Treponema Non Reactive Non Reactive 6 finding Antibody [place] 1 Because ethnic data is not always [...] RECOMMENDED FOR EARLY DETECTION OF . Method: [employer] One-Step Immunoassay 4 URINE SPECIMENS ARE SCREENED [...] infection, then gradually decline. Performed at: - [facility] [address] [id number] Assistant Engineer: Beena Lora MD, Phone: [phone] Performed at: - [facility] [address] [id number] Assistant Engineer: Wilbert Garcia MD, Phone: [phone] Procedures Date Code Description Status 07/12/2019 45286 EKG Completed 07/12/2019 73667 Audiometry, Bekesy, Screening Completed Medical Devices Description No Information Available Encounters Type Date Location Provider Dx Diagnosis Office Visit 07/12/2019 [facility] Louisa Levin, Z00.01 Encounter for 9:45a M.Jason general adult medical exam w abnormal findings [...] back pain Assessments Date Code Description Provider 07/12/2019 Z00.01 Encounter for general adult medical Louisa Lvein M.D. examination with abnormal findings 07/12/2019 J45.909 [...] Levin M.D. unspecified 07/12/2019 G47.00 Insomnia, unspecified oLuisa Levin M.D. 07/12/2019 F41.0 Panic disorder [episodic paroxysmal anxiety] Louisa Levin M.D. 07/12/2019 R25.1 Tremor, unspecified Louisa Levin M.D. 07/12/2019 M54.2 Cervicalgia Louisa Levin M.D. 07/12/2019 M54.5 Low back pain Louisa Levin M.D. Plan of Treatment Future Appointment(s):07/26/2019 10:00 am - Louisa Levin M.D. at [facility]07/12/2019 - Louisa Levin M.D.Z00.01 Encounter for general adult medical examination with abnormal findingsComments:GOOD NUTRITION / EXERCISEDENTAL/ FLOSSING/ SELF CAREDROWNING/ SUN SAFETYSEAT BELT/ DRIVING SAFETYSPORT BIKE/ HELMET USESPORTS/ INJURY PREVENTIONVIOLENCE PREVENTION/ GUN SAFETYPARENTING ADVICE"SAFE AT HOME"SEX EDUCATION/ COUNSELINGBREAST/ TESTICULAR SELF EXAMEDUCATION GOALS/ ACTIVITIESLIMIT TV/ INTERNETUSETOBACCO/ ALCOHOL/ DRUGS / INHALANTSPEER REFUSAL SKILLSSOCIAL INTERACTIONFAMILY FUNCTIONINGSELF CONTROLDEPRESSION/ ANXIETYNEXT APPOINTMENTYEARLY PHYSICAL WELLNESS EVALUATION F /U WITH OB /LEAD TECHNOLOGIST IN [employer] FOR PAPJ45.909 Unspecified asthma, uncomplicatedComments:MDI / NEBULIZER TX PRN AVOID EXPOSURE TO SMOKING OR FUMES SMOKING RYKLMWRYMM10.0 Irritable bowel syndrome with diarrheaComments:TYLENOL OR MOTRIN PRNINCREASE PO FLUIDF/U FHEAQUXEH72.9 Atopic dermatitis, unspecifiedComments:SKIN CARE INSTRUCTIONS EUCERIN CREAM OR BABY OIL 2-3 APPLICATION PER DAYUSE MOISTURIZING SOAPAVOID PROLONGED WATER EXPOSUREAVOID USING HOT WATER IN ONXFTIT86.9 Allergic rhinitis, unspecifiedComments:INCREASE PO FLUID USE ANTIHISTAMINE PRN SECOND HAND SMOKING AVOIDANCE SMOKING APZZCPZVPC23.2 PalpitationsComments:WVFSBRAPGOEDGDEH91.2 Nausea with vomiting, unspecifiedComments:INCREASE PO FLUID CAIO DIETF17.210 Nicotine dependence, cigarettes, uncomplicatedComments:SMOKING CESSATION COUNCELLING MORE THAN 4 MINUTES SPENT DISSUCUSING SMOKING CESSATION BWTVMJD18.009 Migraine without aura , not intractable, without status migrainosusComments:TYLENOL OR MOTRIN PRNRELAXATION/AVOID GVYYRHGEFQ56.30 Unspecified disorder of binocular visionComments:USE GLASSES/CONTACTSF/U WITH HBZWXCKLBZBJHX73.9 Anxiety disorder , unspecifiedComments:COUNCELLING AND REASSURANCE RELAXATION TECHNIQUESAVOID STRESSORS IN LIFE AVOID ALL ENERGY/HIGH CAFFEINE DRINKS DUR FCYSKTUQ44.9 Major depressive disorder, recurrent, unspecifiedComments:COUNCELLING AND REASSURANCE RELAXATION TECHNIQUESAVOID STRESSORS IN LIFE AVOID ALL ENERGY/HIGH CAFFEINE TKFISHD81.00 Insomnia, unspecifiedComments:COUNCELLING AND REASSURANCE RELAXATION TECHNIQUESAVOID STRESSORS IN LIFE AVOID ALL ENERGY/HIGH CAFFEINE DRINKS DUR GWIYFJBY95.0 Panic disorder [episodic paroxysmal anxiety]Comments: COUNCELLING AND REASSURANCE RELAXATION TECHNIQUESSTRESSORS IN LIFE AVOID ALL ENERGY/HIGH CAFFEINE DRINKS DUR EEUXHJKS61.1 Tremor, unspecifiedComments: OBSERVE AVOID ETOH NCUHBO13.2 CervicalgiaComments:EXERCISE/HEAT /MESSAGEAVOID HEAVY LIFTING WT LOSSTYLENOL OR MOTRIN PRNM54.5 Low back painComments:EXERCISE/ HEAT /MESSAGEAVOID HEAVY LIFTING WT LOSSTYLENOL OR MOTRIN PRN Functional Status Description No Information Available Mental Status Description No Information Available Referrals Description No Information Available
[2019-08-14 10:12] VITALS: BP 121/88
--- NOTE | 2019-08-14 10:39 | UC ---
General HPI - HPI Summary HPI Summary: Here with n/v for the past 24 hours. Boyfriend has same illness. Seems to have since slowed down this morning. No diarrhea. Diffuse abdominal pain. No fevers. No urinary symptoms. Decrease PO. Also wants to have a test - LMP: Jun - not on control Meds: Reviewed - History of Current Complaint Chief Complaint: UCGI Stated Complaint: VOMITTING Time Seen by Provider: 08/14/19 10:23 Hx Last Menstrual Period: 05/26/19 Pain Intensity: 0 - Allergy/Home Medications Allergies/Adverse Reactions: Allergies Allergy/AdvReac Type Severity Reaction Status Date / Time hydrocodone Allergy Hives Verified 08/14/19 10:12 Sulfa (Sulfonamide Allergy Rash Verified 08/14/19 10:12 Antibiotics) tramadol Allergy Airway Verified 08/14/19 10:12 Obstruction Home Medications: Home Medications Ondansetron ODT TAB* [Zofran 4 MG Odt TAB*] 4 mg PO Q8H PRN #20 tab.odt [Rx] PMH/Surg Hx/FS Hx/Imm Hx Previously Healthy: Yes - Surgical History Surgical History: Yes Surgery Procedure, Year, and Place: Left Carpal Tunnel, 2014, [facility]. Right Carpal Tunnel, 2012,. [facility]: [facility], 2003 2006 2008 - Family History Known Family History: Positive: Unknown, Hypertension, Diabetes, Other - Brain tumors, lung CA - Social History Alcohol Use: None Substance Use Type: None Smoking Status (MU): Light Every Day Tobacco Smoker Type: Cigarettes Amount Used/How Often: 1/3 PPD Length of Time of Smoking/Using Tobacco: 16 Years Have You Smoked in the Last Year: Yes When Did the Patient Quit Smoking/Using Tobacco: 01/08/19 Household Exposure Type: Cigarettes - Immunization History Most Recent Influenza Vaccination: "Can't even remember. pretty sure I did get one" Review of Systems All Other Systems Reviewed And Are Negative: Yes Gastrointestinal: Positive: Vomiting, Nausea Physical Exam Triage Information Reviewed: Yes Appearance: Well-Appearing Vital Signs: Initial Vital Signs Temp 96.9 F 08/14/19 10:07 Pulse 70 08/14/19 10:07 Resp 18 08/14/19 10:07 BP 121/88 08/14/19 10:07 Pulse Ox 100 08/14/19 10:07 Vital Signs Reviewed: Yes ENT: Positive: Normal ENT inspection Neck: Positive: Supple, Nontender Respiratory: Positive: Lungs clear, Normal breath sounds Cardiovascular: Positive: RRR, No Murmur Course/Dx - Course Course Of Treatment: This is a 34 yr old who is here with acute onset N/V wanting to get checked for test: negative Acute Gastroenteritis Nontoxic appearing Plan Your test was negative Recommend rest, fluids and zofran as needed as directed for nausea/vomiting Start with a bland diet, advance as tolerated If symptoms persist or worsen, recommend follow up with PCP or return to urgent care - Diagnoses Provider Diagnosis: Nausea & vomiting Discharge ED - Sign-Out/Discharge Documenting (check all that apply): Patient Departure All imaging exams completed and their final reports reviewed: No Studies - Discharge Plan Condition: Good Disposition: HOME Prescriptions: Ondansetron ODT TAB* [Zofran 4 MG Odt TAB*] 4 mg PO Q8H PRN #20 tab.odt PRN Reason: Nausea Patient Education Materials: Acute Nausea and Vomiting (ED) Forms: *Work Release Referrals: Louisa Levin MD [Primary Care Provider] - Additional Instructions: Your test was negative Recommend rest, fluids and zofran as needed as directed for nausea/vomiting Start with a bland diet, advance as tolerated If symptoms persist or worsen, recommend follow up with PCP or return to urgent care - Billing Disposition and Condition Condition: GOOD Disposition: Home
== END 2019-08-14 10:40 | disposition home or self-care (01) ==
LOC: UCEAST 09:56
DX: R11.2 Nausea with vomiting, unspecified (principal); F17.210 Nicotine dependence, cigarettes, uncomplicated; Z88.5 Allergy status to narcotic agent; Z88.2 Allergy status to sulfonamides
CPT/HCPCS: 84702; 99212; G0463